=== PATIENT | male | born 1990 | race Caucasian/White ===

== ENCOUNTER 2021-03-24 18:52 | Inpatient (IN) | payer BC, OTHER ==
[~2021-03-24] VITALS: Ht 177.8 cm; Wt 136.4 kg
[2021-03-24] MEDS ORDERED: RT-ALBUTEROL HFA 8.5 GM INHALER IH ONE (19:23)
[2021-03-24] MEDS ORDERED: RT--FLUTICASONE/SALMETEROL 113-14 (AIRDUO RespiCLICK) IH ONE (19:23)
[2021-03-24] MEDS ORDERED: IBUPROFEN 800 MG (MOTRIN) TAB PO ONE (19:25)
[2021-03-24] MEDS ORDERED: ACETAMINOPHEN 500 MG TAB (TYLENOL) PO PRN ×2 (19:30→23:15)
[2021-03-24] MEDS ORDERED: RT-ALBUTEROL HFA 8.5 GM INHALER IH PRN (19:30)
[2021-03-24] MEDS ORDERED: NS IV 1000 ML 1,000 ML IV SCH ×2 (19:30→21:00)
[2021-03-24] MEDS: RT--FLUTICASONE/SALMETEROL 232-14 (AIRDUO RespiCLICK) IH SCH (19:36)
[2021-03-24 19:56] LABS: BASOPHILS % (AUTO) 0 % (0-10); EOSINOPHILS % (AUTO) 0 % (0-10)
[2021-03-24 19:58] LABS: HEMATOCRIT 46 % (40-54); HEMOGLOBIN 15.6 g/dL (13.3-17.7); LYMPHOCYTES # (AUTO) 1.4 10^3/uL (1.0-4.0); LYMPHOCYTES % (AUTO) 27 % (12-44); MEAN CORPUSCULAR HEMOGLOBIN 30 pg (25-34); MEAN CORPUSCULAR HGB CONC 34 g/dL (32-36); MEAN CORPUSCULAR VOLUME 88 fL (80-99); MEAN PLATELET VOLUME 11.1 fL (9.0-12.2); MONOCYTES # (AUTO) 0.4 10^3/uL (0.0-1.0); MONOCYTES % (AUTO) 7 % (0-12); NEUTROPHILS # (AUTO) 3.4 10^3/uL (1.8-7.8); NEUTROPHILS % (AUTO) 65 % (42-75); PLATELET COUNT 129 10^3/uL (130-400); WHITE BLOOD COUNT 5.2 10^3/uL (4.3-11.0)
[2021-03-24 20:13] LABS: ERYTHROCYTE SEDIMENTATION RATE 38 MM/HR (0-15); FIBRIN DEGRADATION PRODUCTS 0.72 UG/ML (0.00-0.49); INR 0.9 (0.8-1.4); PROTHROMBIN TIME PATIENT 12.8 SEC (12.2-14.7)
--- NOTE | 2021-03-24 20:35 | Diagnostic Imaging Report ---
INDICATION: Covid infection with dyspnea AP view of the chest is obtained. There is no previous study for comparison. There is suboptimal inspiration resulting in crowding of pulmonary markings. In addition, peripheral infiltrates are seen bilaterally without pneumothorax or definite pleural fluid. IMPRESSION: Moderate peripheral pulmonary infiltrates bilaterally compatible with Covid infection, however, no other definite acute abnormality is seen. Dictated by: Dictated on workstation # [id number]
[2021-03-24 20:37] LABS: ABG BASE EXCESS 2.9 MMOL/L (-2.5-2.5); ABG OXYGEN SATURATION 99 % (94-100); ABG PCO2 37 MMHG (35-45); ABG PH 7.46 (7.37-7.43); ABG PO2 181 MMHG (79-93); ABG TCO2 28.1 MMOL/L (21.0-31.0); ALLENS TEST POSITIVE; INSPIRED O2 80; PATIENT TEMP 35; VENTILATOR NO
--- NOTE | 2021-03-24 20:38 | ED Respiratory ---
General Chief Complaint: Respiratory Problems Stated Complaint: COVID +,DIABETIC,SOB,FATIGUE Nursing Triage Note: PT PRESENTS TO THE ED C/O SOB FOR THE LAST SEVEN DAYS. PT WAS DX WITH COVID SEVEN DAYS AGO. HAS HAD FEVERS AND COUGH SINCE THEN. TODAY SOB IS AT ITS WORST. PT IS ALSO A DIABETIC AND HAD POOR ORAL FOOD INTAKE D/T MALAISE Source: patient History of Present Illness Date Seen by Provider: Mar 24, 2021 Time Seen by Provider: 19:15 Initial Comments PT ARRIVES VIA POV FROM HOME PT STATES HE HAS BEEN SICK FOR 8 DAYS, TESTED + FOR COVID-19 7 DAYS AGO AT [facility] NO TREATMENT / NO PRESCRIPTIONS PT HAS NOT TAKEN ANYTHING FOR HIS SYMPTOMS AT ANY TIME PT HAS NOT CHECKED HIS TEMPERATURE AT ANY TIME ALL OTHER HOUSEHOLD FAMILY MEMBERS ARE ILL WITH SAME, EXCEPT ONE--OTHER FAMILY MEMBERS BEGAN GETTING SICK 3 DAYS BEFORE HE STARTED HAVING SYMPTOMS C/O SHORTNESS OF BREATH--WORSE TODAY C/O FATIGUE AND GENERALIZED WEAKNESS C/O COUGH C/O SUBJECTIVE FEVER/CHILLS C/O BODY ACHES NO NAUSEA/VOMITING/DIARRHEA OR ABDOMINAL PAIN, BUT HAS NOT BEEN EATING OR DRINKING MUCH BECAUSE OF FATIGUE/MALAISE NO CHEST PAIN NO SWELLING IN LEGS/FEET PT DENIES ANY HISTORY OF RESPIRATORY PROBLEMS PT HAS NEVER SMOKED, AND IS NON-DRINKER AND DENIES DRUG USE PT IS NON-INSULIN DEPENDENT DIABETIC, AND HAS HYPERLIPIDEMIA, AND IS OBESE PT HAS NOT BEEN VACCINATED FOR COVID-19 PCP: [facility] Allergies and Home Medications Allergies Coded Allergies: No Allergy Information Available (Unverified , 03/24/21) Physical Exam Vital Signs - First Documented 03/24/21 19:08 Temp 39.0 Pulse 98 Resp 22 B/P (MAP) 172/116 (134) Pulse Ox 94 O2 Delivery Non Rebreather Capillary Refill : Less Than 3 Seconds Height: '" Weight: lbs. oz. kg; 38.00 BMI Method: Focused Exam Sepsis Stage: Sepsis Possible Source: Pulmonary Lactate Level 03/24/21 19:40: Lactic Acid Level 1.17 Time of Focused Exam: 20:45 Respiratory: No Accessory Muscle Use, No Respiratory Distress, Wheezing (FAINT WHEEZING BILATERALLY) Cardiovascular: Regular Rate, Rhythm, No Edema, No JVD, No Murmur, Normal Peripheral Pulses Capillary Refill: Less Than 3 Seconds Skin: normal color, warm/dry (VERY WARM) Lactic Acid Level Laboratory Tests Test 03/24/21 19:40 Lactic Acid Level 1.17 MMOL/L (0.50-2.00) Within 3hrs of presentation: Admin fluids, Admin ABX, Blood cultures prior to ABX's, Focus exam, Lactate level Progress/Results/Core Measures Suspected Sepsis SIRS Temperature: Pulse: 98 Respiratory Rate: 22 Laboratory Tests 03/24/21 19:40: White Blood Count 5.2 Blood Pressure 172 /116 Mean: 134 03/24/21 19:40: Lactic Acid Level 1.17 Laboratory Tests 03/24/21 19:40: Creatinine 0.83, INR Comment 0.9, Platelet Count 129L, Total Bilirubin 0.6 Results/Orders Lab Results Laboratory Tests Test 03/24/21 19:40 03/24/21 19:53 03/24/21 20:04 03/24/21 20:26 Range/Units White Blood Count 5.2 4.3-11.0 10^3/uL Red Blood Count 5.20 4.30-5.52 10^6/uL Hemoglobin 15.6 13.3-17.7 g/dL Hematocrit 46 40-54 % Mean Corpuscular Volume 88 80-99 fL Mean Corpuscular Hemoglobin 30 25-34 pg Mean Corpuscular Hemoglobin Concent 34 32-36 g/dL Red Cell Distribution Width 13.4 10.0-14.5 % Platelet Count 129 L 130-400 10^3/uL Mean Platelet Volume 11.1 9.0-12.2 fL Immature Granulocyte % (Auto) 1 % Neutrophils (%) (Auto) 65 42-75 % Lymphocytes (%) (Auto) 27 12-44 % Monocytes (%) (Auto) 7 0-12 % Eosinophils (%) (Auto) 0 0-10 % Basophils (%) (Auto) 0 0-10 % Neutrophils # (Auto) 3.4 1.8-7.8 10^3/uL Lymphocytes # (Auto) 1.4 1.0-4.0 10^3/uL Monocytes # (Auto) 0.4 0.0-1.0 10^3/uL Eosinophils # (Auto) 0.0 0.0-0.3 10^3/uL Basophils # (Auto) 0.0 0.0-0.1 10^3/uL Immature Granulocyte # (Auto) 0.0 0.0-0.1 10^3/uL Percent Immature Platelet Fraction 5.5 0.0-7.6 % Erythrocyte Sedimentation Rate 38 H 0-15 MM/HR Prothrombin Time 12.8 12.2-14.7 SEC INR Comment 0.9 0.8-1.4 Activated Partial Thromboplast Time 34 24-35 SEC D-Dimer 0.72 H 0.00-0.49 UG/ML Sodium Level 137 135-145 MMOL/L Potassium Level 3.6 3.6-5.0 MMOL/L Chloride Level 97 L 98-107 MMOL/L Carbon Dioxide Level 25 21-32 MMOL/L Anion Gap 15 H 5-14 MMOL/L Blood Urea Nitrogen 9 7-18 MG/DL Creatinine 0.83 0.60-1.30 MG/DL Estimat Glomerular Filtration Rate 107 BUN/Creatinine Ratio 11 Glucose Level 141 H 70-105 MG/DL Lactic Acid Level 1.17 0.50-2.00 MMOL/L Calcium Level 9.4 8.5-10.1 MG/DL Corrected Calcium 9.5 8.5-10.1 MG/DL Magnesium Level 2.0 1.6-2.4 MG/DL Total Bilirubin 0.6 0.1-1.0 MG/DL Aspartate Amino Transf (AST/SGOT) 126 H 5-34 U/L Alanine Aminotransferase (ALT/SGPT) 123 H 0-55 U/L Alkaline Phosphatase 52 40-136 U/L Lactate Dehydrogenase 433 H 125-220 U/L Total Creatine Kinase 379 H 30-200 U/L Creatine Kinase MB 1.1 <6.6 NG/ML Myoglobin 155.5 H 10.0-92.0 NG/ML Troponin I < 0.028 <0.028 NG/ML C-Reactive Protein High Sensitivity 5.82 H 0.00-0.50 MG/DL B-Type Natriuretic Peptide < 10.0 <100.0 PG/ML Total Protein 7.4 6.4-8.2 GM/DL Albumin 3.9 3.2-4.5 GM/DL Procalcitonin 0.21 H <0.10 NG/ML Glucometer 144 H 70-110 MG/DL Influenza Type A (RT-PCR) Not Detected Not Detecte Influenza Type B (RT-PCR) Not Detected Not Detecte SARS-CoV-2 RNA (RT-PCR) Detected H Not Detecte Blood Gas Puncture Site LEFT RADIAL Blood Gas Patient Temperature 35 Arterial Blood pH 7.46 H 7.37-7.43 Arterial Blood Partial Pressure CO2 37 35-45 MMHG Arterial Blood Partial Pressure O2 181 H 79-93 MMHG Arterial Blood HCO3 27 23-27 MMOL/L Arterial Blood Total CO2 28.1 21.0-31.0 MMOL/L Arterial Blood Oxygen Saturation 99 94-100 % Arterial Blood Base Excess 2.9 H -2.5-2.5 MMOL/L Samy Test POSITIVE Blood Gas Ventilator Setting NO Blood Gas Inspired Oxygen 80 Test 03/24/21 20:57 Range/Units Urine Color ORANGE Urine Clarity CLOUDY Urine pH 6.0 5-9 Urine Specific [place] >=1.030 1.016-1.022 Urine Protein 2+ H NEGATIVE Urine Glucose (UA) NEGATIVE NEGATIVE Urine Ketones NEGATIVE NEGATIVE Urine Nitrite NEGATIVE NEGATIVE Urine Bilirubin NEGATIVE NEGATIVE Urine Urobilinogen 0.2 < = 1.0 MG/DL Urine Leukocyte Esterase NEGATIVE NEGATIVE Urine RBC (Auto) TRACE-I H NEGATIVE Urine RBC NONE /HPF Urine WBC 0-2 /HPF Urine Squamous Epithelial Cells NONE /HPF Urine Renal Epithelial Cells NONE /HPF Urine Crystals NONE /LPF Urine Bacteria NEGATIVE /HPF Urine Casts NONE /LPF Urine Mucus MODERATE H /LPF Urine Culture Indicated NO My Orders Orders - KALEB IBARRA DO Accucheck Stat ONCE (03/24/21 19:16) Ed Iv/Invasive Line Start (03/24/21 19:16) Ekg Tracing (03/24/21 19:16) O2 (03/24/21 19:16) Monitor-Rhythm Ecg Trace Only (03/24/21 19:16) Chest 1 View, Ap/Pa Only (03/24/21 19:16) Arterial Blood Gas (03/24/21 19:16) BNP (03/24/21 19:16) Cbc With Automated Diff (03/24/21 19:16) Comprehensive Metabolic Panel (03/24/21 19:16) Creatine Kinase (03/24/21 19:16) Creatine Kinase Mb (03/24/21 19:16) Hs C Reactive Protein (03/24/21 19:16) Fibrin Degradation Products (03/24/21 19:16) Lactic Acid Analyzer (03/24/21 19:16) Magnesium (03/24/21 19:16) Procalcitonin (Pct) (03/24/21 19:16) Protime With Inr (03/24/21 19:16) Partial Thromboplastin Time (03/24/21 19:16) Ua Culture If Indicated (03/24/21 19:16) Blood Culture (03/24/21 19:16) Influenza A And B By Pcr (03/24/21 19:16) Erythrocyte Sedimentation Rate (03/24/21 19:16) Myoglobin Serum (03/24/21 19:16) Troponin I (03/24/21 19:16) Sputum Culture (03/24/21 19:16) Urine Culture (03/24/21 19:16) Acetaminophen Tablet (Tylenol Tablet) (03/24/21 19:30) Ed Iv/Invasive Line Start (03/24/21 19:16) Ed Iv/Invasive Line Start (03/24/21 19:16) Vital Signs Adult Sepsis Patie Q15M (03/24/21 19:16) O2 (03/24/21 19:16) Remove Rings In Anticipation O (03/24/21 19:16) LDH (03/24/21 19:16) Covid 19 Inhouse Test (03/24/21 19:16) Ed Iv/Invasive Line Start (03/24/21 19:16) Ns Iv 1000 Ml (Sodium Chloride 0.9%) (03/24/21 19:30) Rt Request For Service (03/24/21 19:19) Dexamethasone Injection (Decadron Inje (03/24/21 19:30) Albuterol Inhaler (Albuterol) (03/24/21 19:30) Fluticasone/Salmeterol 232-14 (Airduo Re (03/24/21 21:00) Albuterol Inhaler (Albuterol) (03/24/21 19:23) Fluticasone/Salmeterol 113-14 (Airduo Re (03/24/21 19:23) Ibuprofen Tablet (Motrin Tablet) (03/24/21 19:25) Ct Angio Chest W (03/24/21 20:49) Ed Iv/Invasive Line Start (03/24/21 20:49) Ns Iv 1000 Ml (Sodium Chloride 0.9%) (03/24/21 21:00) Ceftriaxone (Rocephin) (03/24/21 21:00) Azithromycin Injection (Zithromax Inject (03/24/21 21:00) Iohexol Injection (Omnipaque 350 Mg/Ml 1 (03/24/21 21:00) Received Contrast (Hold Metformin- Contr (03/24/21 21:00) Ns (Ivpb) (Sodium Chloride 0.9% Ivpb Bag (03/24/21 21:00) Medications Given in ED Current Medications Medications Dose Ordered Sig/Abby Route Start Time Stop Time Status Last Admin Dose Admin Acetaminophen 1,000 mg ONCE PRN PO 03/24/21 19:30 03/24/21 19:50 DC 03/24/21 19:26 1,000 MG Azithromycin 500 mg/Sodium Chloride 250 ml @ 250 mls/hr ONCE ONCE IV 03/24/21 21:00 03/24/21 21:59 03/24/21 21:48 250 MLS/HR Ceftriaxone Sodium 1000 mg/ Sterile Water 10 ml @ 200 mls/hr ONCE ONCE IV 03/24/21 21:00 03/24/21 21:02 DC 03/24/21 21:04 200 MLS/HR Dexamethasone Sodium Phosphate 10 mg ONCE ONCE IV 03/24/21 19:30 03/24/21 19:31 DC 03/24/21 19:45 10 MG Ibuprofen 800 mg STK-MED ONCE PO 03/24/21 19:25 03/24/21 19:29 DC 03/24/21 19:26 800 MG Iohexol 100 ml ONCE ONCE IV 03/24/21 21:00 03/24/21 21:01 DC 03/24/21 21:23 88 ML Sodium Chloride 100 ml ONCE ONCE IV 03/24/21 21:00 03/24/21 21:01 DC 03/24/21 21:23 80 ML Vital Signs/I&O 03/24/21 03/24/21 19:08 19:26 Temp 39.0 39.0 Pulse 98 Resp 22 B/P (MAP) 172/116 (134) Pulse Ox 94 O2 Delivery Non Rebreather Capillary Refill : Less Than 3 Seconds Blood Pressure Mean: 134 Progress Note : Progress Note PLACED IN ISOLATION ROOM PPE WORN AT ALL TIMES SEPSIS PROTOCOL INITIATED PT'S INITIAL O2 SAT 80-82% ON ROOM AIR--PLACED ON O2 AT 15L VIA OXIMASK AND O2 SATS UP TO 95%, THEN PLACED ON VAPOTHERM, WITH O2 SATS 97-99% GAVE ALBUTEROL AND ADVAIR INHALER TREATMENTS WITH INCREASED AERATION GAVE DECADRON IV GAVE TYLENOL AND MOTRIN FOR TEMP OF 102.2 GAVE IV FLUIDS GAVE ROCEPHIN AND ZITHROMAX GAVE LOVENOX PT SYMPTOMATICALLY IMPROVED AND RESPIRATIONS ARE EVEN AND UNLABORED VITALS STABLE NO HYPOTENSION HEART RATE COMING DOWN WITH ANTIPYRETICS AND IV FLUIDS O2 SATS REMAIN IN UPPER 90'S ON VAPOTHERM. NO DETERIORATION IN PT'S CONDITION DURING ER STAY ECG Initial ECG Impression Date: Mar 24, 2021 Initial ECG Impression Time: 19:23 Initial ECG Rate: 96 Initial ECG Rhythm: Normal Sinus Initial ECG Impression: Nonspecific Changes Initial ECG Comparisson: No Previous ECG Available Diagnostic Imaging Comments CXR--PER RADIOLOGIST REPORT AT 2036 AP view of the chest is obtained. There is no previous study for comparison. There is suboptimal inspiration resulting in crowding of pulmonary markings. In addition, peripheral infiltrates are seen bilaterally without pneumothorax or definite pleural fluid. IMPRESSION: Moderate peripheral pulmonary infiltrates bilaterally compatible with Covid infection, however, no other definite acute abnormality is seen. CT CHEST ANGIOGRAM--PER RADIOLOGIST REPORT AT 2157 FINDINGS: The undivided pulmonary segment of the left and right main pulmonary arteries and the bilateral lobar and segmental arteries are adequately opacified and patent. The subsegmental levels and beyond were suboptimally opacified despite technique manipulation and injection repeat. No identifiable PE was found. There was no evidence for elevated right heart pressures or right heart strain. There is a small hiatal hernia. This patient has extensive patchy 5 lobed largely groundglass infiltrates with a few peripheral areas of consolidation. While nonspecific, the pattern would be consistent with pulmonary involvement by Covid. No pleural effusion, pneumothorax or empyema. No suspicious mass. No acute chest wall abnormality. Upper abdomen shows fatty liver with no acute upper abdominal lesion. IMPRESSION: Five lobe infiltrates compatible with provided history of Covid. No identifiable PE but despite protocol manipulation, the distal and subsegmental branch opacification was technically limited. Reviewed: Reviewed by Me Departure Impression Primary Impression: Acute respiratory failure due to severe acute respiratory syndrome coronavirus 2 (SARS-CoV-2) infection Additional Impressions: Sepsis Non-insulin dependent diabetes mellitus Obesity Pneumonia due to severe acute respiratory syndrome coronavirus 2 (SARS-CoV-2) Departure-Patient Inst. Referrals: NO,LOCAL PHYSICIAN (PCP/Family) Primary Care Physician KALEB IBARRA DO Mar 24, 2021 20:38
[2021-03-24 20:43] LABS: ALANINE AMINOTRANSFERASE 123 U/L (0-55); ALBUMIN 3.9 GM/DL (3.2-4.5); ALKALINE PHOSPHATASE 52 U/L (40-136); BILIRUBIN,TOTAL 0.6 MG/DL (0.1-1.0); BUN/CREATININE RATIO 11; CALCIUM 9.4 MG/DL (8.5-10.1); CARBON DIOXIDE 25 MMOL/L (21-32); CHLORIDE 97 MMOL/L (98-107); CREATINE KINASE 379 U/L (30-200); CREATINE KINASE MB 1.1 NG/ML (<6.6); CREATININE SERUM 0.83 MG/DL (0.60-1.30); GFR ESTIMATED 107; GLUCOSE 141 MG/DL (70-105); POTASSIUM 3.6 MMOL/L (3.6-5.0); SODIUM 137 MMOL/L (135-145); TOTAL PROTEIN 7.4 GM/DL (6.4-8.2)
[2021-03-24] MEDS ORDERED: NS 100 ML (IVPB) BAG IV ONE (21:00)
[2021-03-24] MEDS ORDERED: HOLD METFORMIN - RECEIVED CONTRAST 20 ML VIAL IV SCH (21:00)
[2021-03-24] MEDS ORDERED: cefTRIAXone 1,000 MG in WATER (STERILE) FOR INJECTION 10 ML IV ONE (21:00)
[2021-03-24] MEDS ORDERED: IOHEXOL 350 MG/ML 100 ML (OMNIPAQUE 350) VIAL IV ONE (21:00)
[2021-03-24] MEDS ORDERED: AZITHROMYCIN INJECTION 500 MG in NS (IVPB) 250 ML IV ONE (21:00)
[2021-03-24 21:03] LABS: BILIRUBIN,URINE NEGATIVE (NEGATIVE); CLARITY,URINE CLOUDY; COLOR,URINE ORANGE; GLUCOSE, URINE (UA) NEGATIVE (NEGATIVE); KETONES,URINE NEGATIVE (NEGATIVE); LEUKOCYTE ESTERASE ,URINE NEGATIVE (NEGATIVE); NITRITE,URINE NEGATIVE (NEGATIVE); PROTEIN,URINE 2+ (NEGATIVE)
[2021-03-24 21:14] LABS: BACTERIA,URINE NEGATIVE /HPF; WBC,URINE 0-2 /HPF
--- NOTE | 2021-03-24 21:53 | Diagnostic Imaging Report ---
PROCEDURE: CT angiography of the chest with contrast. TECHNIQUE: Multiple contiguous axial images were obtained through the chest after uneventful bolus administration of intravenous contrast. 3D reconstructed CTA MIP acquisitions were also performed. Auto Exposure Controls were utilized during the CT exam to meet ALARA standards for radiation dose reduction. INDICATION: Cough, shortness of air, Covid positive patient. In addition to routine technique, the scan was repeated twice owing to suboptimal pulmonary arterial opacification. FINDINGS: The undivided pulmonary segment of the left and right main pulmonary arteries and the bilateral lobar and segmental arteries are adequately opacified and patent. The subsegmental levels and beyond were suboptimally opacified despite technique manipulation and injection repeat. No identifiable PE was found. There was no evidence for elevated right heart pressures or right heart strain. There is a small hiatal hernia. This patient has extensive patchy 5 lobed largely groundglass infiltrates with a few peripheral areas of consolidation. While nonspecific, the pattern would be consistent with pulmonary involvement by Covid. No pleural effusion, pneumothorax or empyema. No suspicious mass. No acute chest wall abnormality. Upper abdomen shows fatty liver with no acute upper abdominal lesion. IMPRESSION: Five lobe infiltrates compatible with provided history of Covid. No identifiable PE but despite protocol manipulation, the distal and subsegmental branch opacification was technically limited. Dictated by: Dictated on workstation # [id number]
[2021-03-24 22:50] VITALS: BP 139/86
[2021-03-24 23:00] VITALS: BP 139/86
[2021-03-24 23:15] VITALS: BP 138/84
[2021-03-24] MEDS ORDERED: ONDANSETRON 4 MG/2 ML (SDV) Z0FRAN IV PRN (23:15)
[2021-03-24] MEDS ORDERED: IBUPROFEN 800 MG (MOTRIN) TAB PO PRN (23:15)
[2021-03-24 23:30] VITALS: BP 133/82
[2021-03-24] MEDS ORDERED: VASOPRESSIN INJECTION 20 UNIT in NS (IVPB) 100 ML IV SCH (23:30)
[2021-03-24] MEDS ORDERED: EPINEPHrine 1 MG INJECTION 4 MG in NS (IVPB) 248 ML IV SCH (23:30)
[2021-03-24] MEDS ORDERED: NOREPINEPHRINE 8 MG/250 ML 250 ML IV SCH (23:30)
[2021-03-24] MEDS: NS IV 1000 ML 1,000 ML IV SCH (23:37)
[2021-03-24 23:45] VITALS: BP 140/80
[2021-03-24 23:50] VITALS: BP 172/116
[2021-03-25] VITALS: BP 131/77
--- NOTE | 2021-03-25 00:04 | Tele-ICU Progress Note ---
Progress Note 30M with NIDDM, obesity admitted with progressive COVID symptoms. Unvaccinated. Onset of symptoms 8 days ago, positive COVID 7 days ago. On arrival to ER was 80% on RA, improved with vapotherm 35L/100%. CTA negative for PE. - Pna: COVID pna, supportive care with decadron, albuterol, advair. Empiric bacterial coverage with rocephin, azithro. - DM: sliding scale - code status: order entered for no intubation, OK for CPR. Will provide further education and present options. Will encourage full code, given his age, but if he is adamant about no intubation, will be a DNR. Focused Exam Lactate Level 03/24/21 19:40: Lactic Acid Level 1.17 Height, Weight, BMI Height: '" Weight: lbs. oz. kg; 38.00 BMI Method: Time of Focused Exam: 20:45 LEONOR VERDUGO MD Mar 25, 2021 00:04
[2021-03-25] MEDS ORDERED: RT-ALBUTEROL HFA 8.5 GM INHALER IH PRN (00:15)
[2021-03-25] MEDS: RT-ALBUTEROL HFA 8.5 GM INHALER IH SCH ×6 (02:15→21:53)
[2021-03-25] MEDS: NS IV 1000 ML 1,000 ML IV SCH (05:50)
[2021-03-25] MEDS: inSUlin ASPART (NovoLOG) 1 UNIT/0.01 ML (CHARGE PER UNIT) SC SCH ×4 (05:50→21:37)
[2021-03-25 06:22] LABS: EOSINOPHILS % (AUTO) 0 % (0-10); MONOCYTES # (AUTO) 0.2 10^3/uL (0.0-1.0)
[2021-03-25 06:24] LABS: BASOPHILS % (AUTO) 0 % (0-10); HEMATOCRIT 44 % (40-54); HEMOGLOBIN 14.4 g/dL (13.3-17.7); LYMPHOCYTES # (AUTO) 0.8 10^3/uL (1.0-4.0); LYMPHOCYTES % (AUTO) 25 % (12-44); MEAN CORPUSCULAR HEMOGLOBIN 30 pg (25-34); MEAN CORPUSCULAR HGB CONC 33 g/dL (32-36); MEAN CORPUSCULAR VOLUME 91 fL (80-99); MEAN PLATELET VOLUME 11.4 fL (9.0-12.2); MONOCYTES % (AUTO) 5 % (0-12); NEUTROPHILS # (AUTO) 2.3 10^3/uL (1.8-7.8); NEUTROPHILS % (AUTO) 69 % (42-75); PLATELET COUNT 121 10^3/uL (130-400); WHITE BLOOD COUNT 3.4 10^3/uL (4.3-11.0)
[2021-03-25 06:39] LABS: ALBUMIN 3.5 GM/DL (3.2-4.5); POTASSIUM 4.3 MMOL/L (3.6-5.0)
[2021-03-25 06:40] LABS: CALCIUM 8.7 MG/DL (8.5-10.1)
[2021-03-25 06:42] LABS: TOTAL PROTEIN 6.7 GM/DL (6.4-8.2)
[2021-03-25 06:43] LABS: BILIRUBIN,TOTAL 0.4 MG/DL (0.1-1.0)
[2021-03-25 06:45] LABS: CREATININE SERUM 0.8 MG/DL (0.60-1.30); PHOSPHORUS 3.8 MG/DL (2.3-4.7)
[2021-03-25 06:48] LABS: MAGNESIUM 2.2 MG/DL (1.6-2.4)
--- NOTE | 2021-03-25 07:29 | Diagnostic Imaging Report ---
INDICATION: COVID positive, pneumonia. TECHNIQUE: Single view chest 4:20 AM. CORRELATION STUDY: 03/24/2021 FINDINGS: Extensive bilateral pulmonary infiltrates are again demonstrated overall appear increased in severity. Remaining most pronounced at the left mid upper lung field as well as right lung base. Heart size enlarged, mediastinum prominent. IMPRESSION: 1. Extensive bilateral pulmonary infiltrates again demonstrated overall appear increased and worsening in severity. Report was faxed to [facility] by annette at 7:33am. Dictated by: Dictated on workstation # [id number]
[2021-03-25] MEDS: ENOXAPARIN 60 MG/0.6 ML (LOVENOX) SYR SC SCH ×2 (08:26→21:36)
[2021-03-25] MEDS ORDERED: ENOXAPARIN 40 MG/0.4 ML (LOVENOX) SYR SC SCH (09:00)
--- NOTE | 2021-03-25 09:49 | History & Physical-Hospitalist ---
History of Present Illness HPI/Chief Complaint CC: Covid-19 pneumonia with acute hypoxic respiratory failure HPI: This is a 30yoWM who presented seven days after positive Covid swab, who had worsening hypoxia requiring oxygen supplementation, he is now on Vapotherm and meets criteria for Actemera. 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 Pt was counseled on the need for laying on his side or prone. Source: patient Exam Limitations: clinical condition Date Seen 03/25/21 Time Seen by a Provider: 10:30 Attending Physician Fany Canseco DO PCP No,Local Physician Referring Physician Date of Admission Mar 24, 2021 at 20:40 Home Medications & Allergies Home Medications Reviewed patient Home Medication Reconciliation performed by pharmacy medication reconciliations optometric technician and/or nursing. Patients Allergies have been reviewed. Allergies Allergies Coded Allergies No Allergy Information Available ([id number]/4/21) Past Mocmgga-Itawov-Bmuyrv Hx Patient Social History Marrital Status: Employed/Student: employed Tobacco Use?: No Smoking Status: Former Smoker Substance use?: No Alcohol Use?: No Immunizations Up To Date Tetanus Booster (TDap): Unknown Current Status Advance Directives: No Primary Language: Greenlandic Preferred Spoken Language: Greenlandic Past Medical History Diabetes, Non-Insulin dep Review of Systems Constitutional: see HPI, dizziness, fever, malaise, weakness EENTM: no symptoms reported Respiratory: cough, dyspnea on exertion, short of breath Cardiovascular: no symptoms reported Gastrointestinal: no symptoms reported Genitourinary: no symptoms reported Musculoskeletal: no symptoms reported Psychiatric/Neurological: No Symptoms Reported All Other Systems Reviewed Negative Unless Noted: Yes Physical Exam Physical Exam Vital Signs Vital Signs - First Documented 03/24/21 03/24/21 19:08 22:27 Temp 39.0 Pulse 98 Resp 22 B/P (MAP) 172/116 (134) Pulse Ox 94 O2 Delivery Non Rebreather O2 Flow Rate 15.00 FiO2 80 Capillary Refill : Less Than 3 Seconds Height, Weight, BMI Height: '" Weight: lbs. oz. kg; 52.51 BMI Method: General Appearance: WD/WN, Anxious, Obese Eyes: Right Eye Normal Inspection, Right Eye PERRL HEENT: PERRL/EOMI, Normal ENT Inspection, Pharynx Normal, Moist Mucous Membranes Neck: Full Range of Motion, Normal Inspection, Non Tender Respiratory: Chest Non Tender, Normal Breath Sounds, No Accessory Muscle Use, No Respiratory Distress, Decreased Breath Sounds Cardiovascular: Regular Rate, Rhythm, No Edema, No Gallop, No JVD, No Murmur, Normal Peripheral Pulses Gastrointestinal: Normal Bowel Sounds, No Organomegaly, No Pulsatile Mass, Non Tender, Soft Back: Normal Inspection, No CVA Tenderness, No Vertebral Tenderness Extremity: Normal Capillary Refill, Normal Inspection, Normal Range of Motion, Non Tender, No Calf Tenderness, No Pedal Edema Neurologic/Psychiatric: Alert, Oriented x3, No Motor/Sensory Deficits, lead loader II- XII Norm as Tested, Depressed Affect Skin: Normal Color, Warm/Dry Lymphatic: No Adenopathy Results Results/Procedures Labs Laboratory Tests 03/24/21 19:40 03/25/21 06:10 Patient resulted labs reviewed. Assessment/Plan Admission Diagnosis Assessment: Acute hypoxic respiratory failure COVID-19 pneumonia severe requiring Actemra Diabetes with elevated sugar due to steroids Obesity BMI 52 high risk for intubation Plan: Decadron Lovenox Community-acquired pneumonia antibiotic coverage Actemra Insulin Prone position recommended Admission Status: Inpatient Order (span 2 midnights) Reason for Inpatient Admission: Respiratory failure FANY CANSECO DO Mar 25, 2021 09:49
[2021-03-25] MEDS: RT--FLUTICASONE/SALMETEROL 232-14 (AIRDUO RespiCLICK) IH SCH ×2 (10:44→21:55)
--- NOTE | 2021-03-25 11:32 | Tele-ICU Progress Note ---
Subjective Date Seen by a Provider: Mar 25, 2021 Time Seen by a Provider: 11:31 Sepsis Event Evaluation Height, Weight, BMI Height: '" Weight: lbs. oz. kg; 52.51 BMI Method: Focused Exam Lactate Level 03/24/21 19:40: Lactic Acid Level 1.17 Time of Focused Exam: 20:45 Exam Exam Patient acknowledged, consented, and participated in this virtual visit which was conducted using real time audio/video Vital Signs Date Time Temp Pulse Resp B/P (MAP) Pulse Ox O2 Delivery O2 Flow Rate FiO2 03/25/21 11:00 75 22 130/76 90 Vapotherm 30.00 70.00 03/25/21 10:44 91 Vapotherm 30.00 70 03/25/21 10:00 61 14 138/82 96 Vapotherm 30.00 70.00 03/25/21 09:00 75 23 141/81 87 Vapotherm 30.00 70.00 03/25/21 08:30 Vapotherm 30.00 70.00 03/25/21 08:00 70 Vapotherm 30.00 92 03/25/21 08:00 73 18 126/80 94 OxyMask 12.00 03/25/21 08:00 36.1 03/25/21 07:16 90 OxyMask 14.00 03/25/21 07:00 79 47 130/82 90 OxyMask 12.00 03/25/21 06:38 66 03/25/21 06:00 64 19 127/83 92 OxyMask 12.00 03/25/21 05:00 78 21 132/80 93 OxyMask 12.00 03/25/21 04:00 66 18 125/83 93 OxyMask 12.00 03/25/21 04:00 36.3 03/25/21 03:36 OxyMask 12.00 92 03/25/21 03:00 60 25 124/80 94 OxyMask 12.00 03/25/21 02:15 94 OxyMask 14.00 03/25/21 02:00 66 22 125/79 95 OxyMask 12.00 03/25/21 01:59 36.4 03/25/21 01:00 73 03/25/21 01:00 73 19 140/81 95 OxyMask 12.00 03/25/21 00:00 79 21 131/77 (95) 96 OxyMask 12.00 03/25/21 00:00 79 21 131/70 96 OxyMask 12.00 03/24/21 23:50 39.0 98 94 100 03/24/21 23:45 71 22 140/80 (100) 95 OxyMask 12.00 03/24/21 23:45 71 22 140/80 95 OxyMask 12.00 03/24/21 23:37 78 133/82 03/24/21 23:30 79 25 133/82 (99) 93 OxyMask 12.00 03/24/21 23:30 79 25 133/82 93 OxyMask 12.00 03/24/21 23:15 81 28 138/84 (102) 92 OxyMask 12.00 03/24/21 23:15 81 28 138/84 92 OxyMask 12.00 03/24/21 23:00 80 28 139/86 (103) 94 OxyMask 12.00 03/24/21 23:00 70 03/24/21 23:00 80 28 139/86 94 OxyMask 12.00 03/24/21 22:50 36.1 79 37 139/86 (103) 93 OxyMask 12.00 03/24/21 22:50 OxyMask 12.00 92 03/24/21 22:50 36.1 79 37 139/86 92 OxyMask 12.00 03/24/21 22:47 37.3 93 27 122/65 95 Vapotherm 35.00 35.00 03/24/21 22:27 96 Vapotherm 35.00 80 03/24/21 21:00 38.7 86 22 145/91 94 Vapotherm 35.00 03/24/21 19:26 39.0 03/24/21 19:08 94 Non Rebreather 15.00 03/24/21 19:08 39.0 98 22 172/116 (134) 94 Non Rebreather I & O 03/25/21 07:00 Intake Total 6110 ml Output Total 0 ml Balance 6110 ml Height & Weight Height: '" Weight: lbs. oz. kg; 52.51 BMI Method: General Appearance: No Apparent Distress Respiratory: No Accessory Muscle Use, No Respiratory Distress, Wheezing (FAINT WHEEZING BILATERALLY) Cardiovascular: Regular Rate, Rhythm, No Edema, No JVD, No Murmur, Normal Peripheral Pulses Capillary Refill: Less Than 3 Seconds Results Lab Laboratory Tests 03/24/21 19:40 03/25/21 06:10 Assessment/Plan Assessment/Plan Tele-ICU Physician , Progress Note ) Available chart/ vitals / labs / Images reviewed Video assessment done using teleICU camera, rest of exam as per RN Discussed with RN , EXAM PER RN Events overnight : FEBRILE I/O = pos drips: Pressors: , hemodynamically stable Consultants: Hospital course: 03/24 ER to ICU COVID PNA , Vapotherm 100% 35 L A/P AHRF / ARDS due to severe COVID19 ( no PE on CT 03/24 -Vapotherm 100% 35 L -prone position if able - conservative fluid strategy (aim for even or negative fluid balance - STOP IVF TODAY [id number]-4/COVID-19 PNA ( 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 Lines : periph (Central Line Necessity Reviewed) Eaton: void OG: Nutrition: PO Analgesia: Anxiety/ delirium VTE Prophylaxis: remedios 60 q12 Stress Ulcer Prophylaxis: po Plans in collaboration with bedside consultants and IM MDs. Discussed with RN to reach out if any questions or concerns A total of 33 minutes of critical care time was devoted to this patient today, required to treat and/or prevent further deterioration of critical care condition ( as above) . AMANDA SALMON MD Mar 25, 2021 11:32
[2021-03-25] MEDS ORDERED: TOCILIZUMAB INJECTION (NON-FOR 800 MG in NS (IVPB) 60 ML IV ONE (13:00)
[2021-03-25] MEDS: AZITHROMYCIN INJECTION 500 MG in NS (IVPB) 250 ML IV SCH (21:36)
[2021-03-25] MEDS: cefTRIAXone 1,000 MG in WATER (STERILE) FOR INJECTION 10 ML IV SCH (21:36)
[2021-03-26] MEDS: RT-ALBUTEROL HFA 8.5 GM INHALER IH SCH ×6 (02:13→22:19)
[2021-03-26 05:25] LABS: BASOPHILS % (AUTO) 0 % (0-10); EOSINOPHILS % (AUTO) 0 % (0-10); HEMATOCRIT 44 % (40-54); HEMOGLOBIN 14.2 g/dL (13.3-17.7); LYMPHOCYTES # (AUTO) 0.8 10^3/uL (1.0-4.0); LYMPHOCYTES % (AUTO) 14 % (12-44); MEAN CORPUSCULAR HEMOGLOBIN 29 pg (25-34); MEAN CORPUSCULAR HGB CONC 32 g/dL (32-36); MEAN CORPUSCULAR VOLUME 91 fL (80-99); MEAN PLATELET VOLUME 11.5 fL (9.0-12.2); MONOCYTES # (AUTO) 0.3 10^3/uL (0.0-1.0); MONOCYTES % (AUTO) 5 % (0-12); NEUTROPHILS % (AUTO) 81 % (42-75); PLATELET COUNT 158 10^3/uL (130-400); WHITE BLOOD COUNT 6.2 10^3/uL (4.3-11.0)
[2021-03-26 05:38] LABS: ALBUMIN 3.4 GM/DL (3.2-4.5)
[2021-03-26 05:39] LABS: POTASSIUM 4.2 MMOL/L (3.6-5.0)
[2021-03-26 05:40] LABS: CALCIUM 9.2 MG/DL (8.5-10.1)
[2021-03-26 05:41] LABS: TOTAL PROTEIN 6.4 GM/DL (6.4-8.2)
[2021-03-26] MEDS: inSUlin ASPART (NovoLOG) 1 UNIT/0.01 ML (CHARGE PER UNIT) SC SCH ×4 (05:42→21:00)
[2021-03-26 05:43] LABS: BILIRUBIN,TOTAL 0.3 MG/DL (0.1-1.0)
[2021-03-26 05:44] LABS: PHOSPHORUS 3.6 MG/DL (2.3-4.7)
[2021-03-26 05:45] LABS: CREATININE SERUM 0.71 MG/DL (0.60-1.30)
[2021-03-26 05:47] LABS: MAGNESIUM 2.1 MG/DL (1.6-2.4)
--- NOTE | 2021-03-26 08:24 | Tele-ICU Progress Note ---
Subjective Date Seen by a Provider: Mar 26, 2021 Time Seen by a Provider: 08:19 Subjective/Events-last exam On 25 lpm vapotherm, 60% FiO2 with SpO2 mid 90's and spont RR mid 20's, On Airduo, decadron, azithromycin, Rocephin, Got IV tociliumab on bid Lovenox d dimer 0.72 CXR 03/25 shows extensive bilateral infiltrates which is worrisome enlarged heart, CXR is worsening Full code, pt willing to be intubated if needed Pt says feels ok, able to sit up and eat, not much drop in SpO2 when Sepsis Event Evaluation Height, Weight, BMI Height: '" Weight: lbs. oz. kg; 52.51 BMI Method: Focused Exam Lactate Level 03/24/21 19:40: Lactic Acid Level 1.17 Time of Focused Exam: 20:45 Exam Exam Patient acknowledged, consented, and participated in this virtual visit which was conducted using real time audio/video Vital Signs Date Time Temp Pulse Resp B/P (MAP) Pulse Ox O2 Delivery O2 Flow Rate FiO2 03/26/21 07:50 36.0 03/26/21 06:50 95 Vapotherm 25.00 60 03/26/21 06:00 60 24 122/83 93 Vapotherm 25.00 60.00 03/26/21 05:00 66 30 123/88 92 Vapotherm 25.00 60.00 03/26/21 04:00 60 Vapotherm 25.00 93 03/26/21 04:00 60 126/81 98 Vapotherm 25.00 60.00 03/26/21 04:00 36.1 03/26/21 03:00 61 23 114/79 97 Vapotherm 25.00 60.00 03/26/21 02:13 96 Vapotherm 25.00 60 03/26/21 02:00 63 125/84 97 Vapotherm 25.00 60.00 03/26/21 01:00 67 03/26/21 01:00 67 25 128/81 95 Vapotherm 25.00 60.00 03/26/21 00:00 66 27 122/86 93 Vapotherm 25.00 60.00 03/25/21 23:53 60 Vapotherm 25.00 93 03/25/21 23:51 36.6 03/25/21 23:00 79 14 121/68 95 Vapotherm 25.00 60.00 03/25/21 22:00 79 29 133/85 95 Vapotherm 25.00 60.00 03/25/21 21:56 93 Vapotherm 25.00 60 03/25/21 21:00 81 26 123/65 98 Vapotherm 25.00 60.00 03/25/21 20:00 90 22 147/91 87 Vapotherm 25.00 60.00 03/25/21 19:51 60 Vapotherm 25.00 93 03/25/21 19:00 83 03/25/21 19:00 83 30 137/85 92 Vapotherm 25.00 60.00 03/25/21 18:39 94 Vapotherm 25.00 60 03/25/21 18:00 112 27 134/94 95 Vapotherm 25.00 60.00 03/25/21 17:00 74 22 134/91 88 Vapotherm 25.00 60.00 03/25/21 16:18 36.3 03/25/21 16:00 60 Vapotherm 25.00 93 03/25/21 16:00 79 17 132/91 95 Vapotherm 25.00 60.00 03/25/21 15:00 96 26 87 Vapotherm 25.00 60.00 03/25/21 14:36 92 Vapotherm 25.00 60 03/25/21 14:00 79 27 144/92 92 Vapotherm 25.00 60.00 03/25/21 13:30 Vapotherm 25.00 60.00 03/25/21 13:00 84 43 145/87 94 Vapotherm 30.00 70.00 03/25/21 13:00 79 03/25/21 12:00 36.1 03/25/21 12:00 89 49 146/98 91 Vapotherm 30.00 70.00 03/25/21 12:00 60 Vapotherm 25.00 93 03/25/21 11:00 75 22 130/76 90 Vapotherm 30.00 70.00 03/25/21 10:44 91 Vapotherm 30.00 70 03/25/21 10:00 61 14 138/82 96 Vapotherm 30.00 70.00 03/25/21 09:00 75 23 141/81 87 Vapotherm 30.00 70.00 03/25/21 08:30 Vapotherm 30.00 70.00 I & O 03/26/21 07:00 Intake Total 25549 ml Balance 41401 ml Height & Weight Height: '" Weight: lbs. oz. kg; 52.51 BMI Method: General Appearance: WD/WN, Anxious, Mild Distress, Obese HEENT: PERRL/EOMI, Normal ENT Inspection, Pharynx Normal, Moist Mucous Membranes Neck: Full Range of Motion, Normal Inspection, Non Tender Respiratory: Chest Non Tender, Normal Breath Sounds, No Accessory Muscle Use, No Respiratory Distress, Decreased Breath Sounds Cardiovascular: Regular Rate, Rhythm, No Edema, No Gallop, No JVD, No Murmur, Normal Peripheral Pulses Capillary Refill: Less Than 3 Seconds Gastrointestinal: normal bowel sounds, non tender Extremity: Normal Capillary Refill, Normal Inspection, Normal Range of Motion, Non Tender, No Calf Tenderness, No Pedal Edema Neurologic/Psychiatric: Alert, Oriented x3, No Motor/Sensory Deficits, 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 Unvaccinated. Onset of symptoms 8 days ago, positive COVID 7 days ago. On arrival to ER was 80% on RA, improved with vapotherm 35L/100%. CTA negative for PE. Now on 60% 25 lpm - Pna: COVID pna, supportive care with decadron, albuterol, advair. Empiric bacterial coverage with rocephin, azithro. - DM: sliding scale - code status: order entered for no intubation, OK for CPR. Will provide further education and present options. Will encourage full code, given his age, but if he is adamant about no intubation, will be a DNR. Will continue present Rx and monitor oxygenation needs closely Critical Care: Critically Ill Patient Time spent with patient (mins): 30 ISIS MONTILLA MD Mar 26, 2021 08:24
[2021-03-26] MEDS: ENOXAPARIN 60 MG/0.6 ML (LOVENOX) SYR SC SCH ×2 (08:48→20:58)
--- NOTE | 2021-03-26 10:17 | Progress Note - Hospitalist ---
Subjective HPI/CC On Admission Date Seen by Provider: Mar 26, 2021 Time Seen by Provider: 11:00 CC: Covid-19 pneumonia with acute hypoxic respiratory failure HPI: This is a 30yoWM who presented seven days after positive Covid swab, who had worsening hypoxia requiring oxygen supplementation, he is now on Vapotherm and meets criteria for Actemera. 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 Pt was counseled on the need for laying on his side or prone. Subjective/Events-last exam Pt doing better No significant concerns Actemra given yesterday Hopefully that will help him by Wednesday Checked meds and labs Diarrhea is noted Trying to be on his side in a prone position Review of Systems Pulmonary: Dyspnea Focused Exam Lactate Level 03/24/21 19:40: Lactic Acid Level 1.17 Time of Focused Exam: 20:45 Objective Exam Vital Signs Vital Signs Date Time Temp Pulse Resp B/P (MAP) Pulse Ox O2 Delivery O2 Flow Rate FiO2 03/27/21 04:39 Vapotherm 40.00 100.00 03/27/21 04:30 36.7 65 03/27/21 04:30 88 100 03/27/21 03:00 30 131/88 Capillary Refill : Less Than 3 Seconds General Appearance: No Apparent Distress, WD/WN, Chronically ill Respiratory: No Accessory Muscle Use, Decreased Breath Sounds Cardiovascular: Regular Rate, Rhythm Neurologic/Psychiatric: Alert, Oriented x3 Results/Procedures Lab Patient resulted labs reviewed. Assessment/Plan Assessment and Plan Assess & Plan/Chief Complaint Assessment: Acute hypoxic respiratory failure COVID-19 pneumonia severe requiring Actemra Diabetes with elevated sugar due to steroids Obesity BMI 52 high risk for intubation Plan: Decadron Lovenox Community-acquired pneumonia antibiotic coverage Actemra Insulin Prone position recommended 03/26/2021: Continue supportive care Vapotherm Actemra on board Critical Care Critically Ill Patient ANGELA RUIZ DO Mar 26, 2021 10:17
[2021-03-26] MEDS: RT--FLUTICASONE/SALMETEROL 232-14 (AIRDUO RespiCLICK) IH SCH ×2 (10:28→19:00)
[2021-03-26] MEDS: cefTRIAXone 1,000 MG in WATER (STERILE) FOR INJECTION 10 ML IV SCH (20:57)
[2021-03-26] MEDS: AZITHROMYCIN INJECTION 500 MG in NS (IVPB) 250 ML IV SCH (20:58)
[2021-03-27] MEDS: RT-ALBUTEROL HFA 8.5 GM INHALER IH SCH ×6 (02:32→22:12)
--- NOTE | 2021-03-27 04:56 | Tele-ICU Progress Note ---
Subjective Date Seen by a Provider: Mar 27, 2021 Time Seen by a Provider: 04:55 Sepsis Event Evaluation Height, Weight, BMI Height: '" Weight: lbs. oz. kg; 52.51 BMI Method: Focused Exam Lactate Level 03/24/21 19:40: Lactic Acid Level 1.17 Time of Focused Exam: 20:45 Exam Exam Patient acknowledged, consented, and participated in this virtual visit which was conducted using real time audio/video Vital Signs Date Time Temp Pulse Resp B/P (MAP) Pulse Ox O2 Delivery O2 Flow Rate FiO2 03/27/21 04:39 Vapotherm 40.00 100.00 03/27/21 04:30 36.7 65 Vapotherm 30.00 75.00 03/27/21 04:30 88 Vapotherm 35.00 100 03/27/21 03:00 59 30 131/88 95 Vapotherm 30.00 80.00 03/27/21 02:32 100 Vapotherm 30.00 75 03/27/21 02:00 57 31 130/89 95 Vapotherm 30.00 80.00 03/27/21 01:00 89 33 134/92 90 Vapotherm 30.00 80.00 03/27/21 01:00 89 03/27/21 00:37 Vapotherm 30.00 80.00 03/27/21 00:00 61 139/95 96 Vapotherm 30.00 80.00 03/26/21 23:11 80 Vapotherm 30.00 92 03/26/21 23:11 36.7 92 30.00 80.00 03/26/21 23:00 71 9 147/103 92 Vapotherm 25.00 70.00 03/26/21 22:19 93 Vapotherm 30.00 80 03/26/21 22:00 75 31 155/98 93 Vapotherm 25.00 70.00 03/26/21 21:00 79 25 129/68 87 Vapotherm 25.00 70.00 03/26/21 20:00 79 28 118/62 89 Vapotherm 25.00 70.00 03/26/21 20:00 36.6 03/26/21 19:35 70 Vapotherm 25.00 94 03/26/21 19:00 90 Vapotherm 25.00 70 03/26/21 19:00 82 03/26/21 19:00 82 29 161/99 90 Vapotherm 25.00 70.00 03/26/21 18:39 Vapotherm 25.00 70.00 03/26/21 18:00 86 23 139/91 85 Vapotherm 25.00 80.00 03/26/21 17:40 Vapotherm 25.00 80.00 03/26/21 17:00 71 139/78 92 Vapotherm 25.00 60.00 03/26/21 16:29 80 Vapotherm 25.00 92 03/26/21 16:04 36.7 03/26/21 16:00 73 23 154/96 93 Vapotherm 25.00 60.00 03/26/21 15:00 83 164/98 90 Vapotherm 25.00 60.00 03/26/21 14:23 90 Vapotherm 25.00 60 03/26/21 14:00 82 36 121/69 89 Vapotherm 25.00 60.00 03/26/21 13:00 78 03/26/21 13:00 76 36 116/80 91 Vapotherm 25.00 60.00 03/26/21 12:00 36.3 03/26/21 12:00 73 31 131/98 92 Vapotherm 25.00 60.00 03/26/21 12:00 60 Vapotherm 25.00 92 03/26/21 11:00 80 8 83 Vapotherm 25.00 60.00 03/26/21 10:28 92 Vapotherm 25.00 60 03/26/21 10:00 66 24 133/117 95 Vapotherm 25.00 60.00 03/26/21 09:00 81 42 130/90 82 Vapotherm 25.00 60.00 03/26/21 08:00 60 Vapotherm 25.00 94 03/26/21 08:00 72 23 120/73 88 Vapotherm 25.00 60.00 03/26/21 07:50 36.0 03/26/21 07:00 69 03/26/21 07:00 67 42 120/78 96 Vapotherm 25.00 60.00 03/26/21 06:50 95 Vapotherm 25.00 60 03/26/21 06:00 60 24 122/83 93 Vapotherm 25.00 60.00 03/26/21 05:00 66 30 123/88 92 Vapotherm 25.00 60.00 I & O 03/27/21 07:00 Intake Total 2015 ml Output Total 1675 ml Balance 340 ml Height & Weight Height: '" Weight: lbs. oz. kg; 52.51 BMI Method: General Appearance: WD/WN, Anxious, Mild Distress, Obese HEENT: PERRL/EOMI, Normal ENT Inspection, Pharynx Normal, Moist Mucous Membranes Neck: Full Range of Motion, Normal Inspection, Non Tender Respiratory: Chest Non Tender, Normal Breath Sounds, No Accessory Muscle Use, No Respiratory Distress, Decreased Breath Sounds Cardiovascular: Regular Rate, Rhythm, No Edema, No Gallop, No JVD, No Murmur, Normal Peripheral Pulses Capillary Refill: Less Than 3 Seconds Gastrointestinal: normal bowel sounds, non tender Extremity: Normal Capillary Refill, Normal Inspection, Normal Range of Motion, Non Tender, No Calf Tenderness, No Pedal Edema Neurologic/Psychiatric: Alert, Oriented x3, No Motor/Sensory Deficits, 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
[2021-03-27 05:26] LABS: BASOPHILS % (AUTO) 0 % (0-10); EOSINOPHILS % (AUTO) 0 % (0-10); HEMATOCRIT 44 % (40-54); HEMOGLOBIN 14.6 g/dL (13.3-17.7); LYMPHOCYTES # (AUTO) 0.9 10^3/uL (1.0-4.0); LYMPHOCYTES % (AUTO) 11 % (12-44); MEAN CORPUSCULAR HEMOGLOBIN 30 pg (25-34); MEAN CORPUSCULAR HGB CONC 33 g/dL (32-36); MEAN CORPUSCULAR VOLUME 90 fL (80-99); MEAN PLATELET VOLUME 11.4 fL (9.0-12.2); MONOCYTES # (AUTO) 0.3 10^3/uL (0.0-1.0); MONOCYTES % (AUTO) 3 % (0-12); NEUTROPHILS % (AUTO) 85 % (42-75); PLATELET COUNT 196 10^3/uL (130-400); WHITE BLOOD COUNT 8.3 10^3/uL (4.3-11.0)
[2021-03-27 05:43] LABS: ALBUMIN 3.3 GM/DL (3.2-4.5); POTASSIUM 4.1 MMOL/L (3.6-5.0)
[2021-03-27 05:44] LABS: CALCIUM 8.8 MG/DL (8.5-10.1)
[2021-03-27 05:45] LABS: TOTAL PROTEIN 6.2 GM/DL (6.4-8.2)
[2021-03-27 05:47] LABS: BILIRUBIN,TOTAL 0.4 MG/DL (0.1-1.0)
[2021-03-27 05:49] LABS: CREATININE SERUM 0.71 MG/DL (0.60-1.30); PHOSPHORUS 4.3 MG/DL (2.3-4.7)
[2021-03-27] MEDS: inSUlin ASPART (NovoLOG) 1 UNIT/0.01 ML (CHARGE PER UNIT) SC SCH ×4 (05:50→21:15)
--- NOTE | 2021-03-27 06:08 | Diagnostic Imaging Report ---
INDICATION: Respiratory failure COMPARISON: 03/25/2021 FINDINGS: Single view of the chest demonstrates worsening bilateral patchy infiltrates. The heart is normal. There is no pneumothorax or large effusion. IMPRESSION: Worsening bilateral pulmonary infiltrates. Dictated by: Dictated on workstation # [id number]
[2021-03-27 06:26] LABS: ABG BASE EXCESS 3.3 MMOL/L (-2.5-2.5); ABG OXYGEN SATURATION 93 % (94-100); ABG PCO2 46 MMHG (35-45); ABG PO2 66 MMHG (79-93); ABG TCO2 29.3 MMOL/L (21.0-31.0); ALLENS TEST YES-POS
[2021-03-27 06:27] LABS: INSPIRED O2 100% VAPOTHERM; PATIENT TEMP 36.7; VENTILATOR NO
[2021-03-27] MEDS: ENOXAPARIN 60 MG/0.6 ML (LOVENOX) SYR SC SCH ×2 (08:54→21:16)
[2021-03-27] MEDS ORDERED: FUROSEMIDE 40 MG/4 ML INJ (LASIX) IVP ONE (10:30)
[2021-03-27] MEDS: RT--FLUTICASONE/SALMETEROL 232-14 (AIRDUO RespiCLICK) IH SCH ×2 (10:33→18:46)
[2021-03-27 10:34] VITALS: BP 143/94
--- NOTE | 2021-03-27 10:50 | Tele-ICU Progress Note ---
Subjective Date Seen by a Provider: Mar 27, 2021 Time Seen by a Provider: 10:49 Sepsis Event Evaluation Height, Weight, BMI Height: '" Weight: lbs. oz. kg; 52.51 BMI Method: Focused Exam Lactate Level 03/24/21 19:40: Lactic Acid Level 1.17 Time of Focused Exam: 20:45 Exam Exam Patient acknowledged, consented, and participated in this virtual visit which was conducted using real time audio/video Vital Signs Date Time Temp Pulse Resp B/P (MAP) Pulse Ox O2 Delivery O2 Flow Rate FiO2 03/27/21 07:51 36.6 03/27/21 07:00 56 03/27/21 06:20 96 Vapotherm 40.00 100 03/27/21 06:00 66 24 120/85 88 Vapotherm 40.00 100.00 03/27/21 05:48 Vapotherm 40.00 100.00 03/27/21 05:13 Vapotherm 35.00 100.00 03/27/21 05:00 56 17 140/83 92 Vapotherm 40.00 100.00 03/27/21 04:39 Vapotherm 40.00 100.00 03/27/21 04:30 36.7 65 Vapotherm 30.00 75.00 03/27/21 04:30 88 Vapotherm 35.00 100 03/27/21 04:00 58 9 122/87 99 Vapotherm 30.00 80.00 03/27/21 03:00 59 30 131/88 95 Vapotherm 30.00 80.00 03/27/21 02:32 100 Vapotherm 30.00 75 03/27/21 02:00 57 31 130/89 95 Vapotherm 30.00 80.00 03/27/21 01:00 89 33 134/92 90 Vapotherm 30.00 80.00 03/27/21 01:00 89 03/27/21 00:37 Vapotherm 30.00 80.00 03/27/21 00:00 61 139/95 96 Vapotherm 30.00 80.00 03/26/21 23:11 80 Vapotherm 30.00 92 03/26/21 23:11 36.7 92 30.00 80.00 03/26/21 23:00 71 9 147/103 92 Vapotherm 25.00 70.00 03/26/21 22:19 93 Vapotherm 30.00 80 03/26/21 22:00 75 31 155/98 93 Vapotherm 25.00 70.00 03/26/21 21:00 79 25 129/68 87 Vapotherm 25.00 70.00 03/26/21 20:00 79 28 118/62 89 Vapotherm 25.00 70.00 03/26/21 20:00 36.6 03/26/21 19:35 70 Vapotherm 25.00 94 03/26/21 19:00 90 Vapotherm 25.00 70 03/26/21 19:00 82 03/26/21 19:00 82 29 161/99 90 Vapotherm 25.00 70.00 03/26/21 18:39 Vapotherm 25.00 70.00 03/26/21 18:00 86 23 139/91 85 Vapotherm 25.00 80.00 03/26/21 17:40 Vapotherm 25.00 80.00 03/26/21 17:00 71 139/78 92 Vapotherm 25.00 60.00 03/26/21 16:29 80 Vapotherm 25.00 92 03/26/21 16:04 36.7 03/26/21 16:00 73 23 154/96 93 Vapotherm 25.00 60.00 03/26/21 15:00 83 164/98 90 Vapotherm 25.00 60.00 03/26/21 14:23 90 Vapotherm 25.00 60 03/26/21 14:00 82 36 121/69 89 Vapotherm 25.00 60.00 03/26/21 13:00 78 03/26/21 13:00 76 36 116/80 91 Vapotherm 25.00 60.00 03/26/21 12:00 36.3 03/26/21 12:00 73 31 131/98 92 Vapotherm 25.00 60.00 03/26/21 12:00 60 Vapotherm 25.00 92 03/26/21 11:00 80 8 83 Vapotherm 25.00 60.00 I & O 03/27/21 07:00 Intake Total 2165 ml Output Total 1950 ml Balance 215 ml Height & Weight Height: '" Weight: lbs. oz. kg; 52.51 BMI Method: General Appearance: No Apparent Distress, WD/WN, Chronically ill HEENT: PERRL/EOMI, Normal ENT Inspection, Pharynx Normal, Moist Mucous Membranes Neck: Full Range of Motion, Normal Inspection, Non Tender Respiratory: No Accessory Muscle Use, Decreased Breath Sounds Cardiovascular: Regular Rate, Rhythm Capillary Refill: Less Than 3 Seconds Gastrointestinal: normal bowel sounds, non tender Extremity: Normal Capillary Refill, Normal Inspection, Normal Range of Motion, Non Tender, No Calf Tenderness, No Pedal Edema Neurologic/Psychiatric: Alert, Oriented x3 Skin: Normal Color, Warm/Dry Lymphatic: No Adenopathy Results Lab Laboratory Tests 03/26/21 04:47 03/27/21 05:05 Assessment/Plan Assessment/Plan Tele-ICU Physician , Progress Note ) Available chart/ vitals / labs / Images reviewed Video assessment done using teleICU camera, rest of exam as per RN Discussed with RN , EXAM PER RN Events overnight : FEBRILE I/O = pos drips: Pressors: , hemodynamically stable Consultants: Hospital course: 03/24 ER to ICU COVID PNA , Vapotherm 100% 35 L 03/27 - vapotherm 40 100% - bipap PRN A/P AHRF / ARDS due to severe COVID19 ( no PE on CT 03/24 -Vapotherm 100% 40 L -prone position if able - conservative fluid strategy (aim for even or negative fluid balance - WILL TRY GENTLE DIURESIS TODAY with worsenig FIO2 needs - will order DDIMER 03/28 [id number]-Qfdfwprfrea-0/COVID-19 PNA ( 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 Lines : periph - candidate for PICC - (Central Line Necessity Reviewed) Eaton: void OG: Nutrition: PO Analgesia: Anxiety/ delirium VTE Prophylaxis: remedios 60 q12 Stress Ulcer Prophylaxis: po Plans in collaboration with bedside consultants and IM MDs. Discussed with RN to reach out if any questions or concerns A total of 33 minutes of critical care time was devoted to this patient today, required to treat and/or prevent further deterioration of critical care condition ( as above) . AMANDA SALMON MD Mar 27, 2021 10:50
--- NOTE | 2021-03-27 10:51 | Progress Note - Hospitalist ---
Subjective HPI/CC On Admission Date Seen by Provider: Mar 27, 2021 Time Seen by Provider: 11:40 CC: Covid-19 pneumonia with acute hypoxic respiratory failure HPI: This is a 30yoWM who presented seven days after positive Covid swab, who had worsening hypoxia requiring oxygen supplementation, he is now on Vapotherm and meets criteria for Actemera. 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 Pt was counseled on the need for laying on his side or prone. Subjective/Events-last exam Patient progressed from Vapotherm to BiPAP Patient appears to be more comfortable High risk for intubation BMI 53 does not allow him to be considered an ECMO candidate Review of Systems General: Fatigue Pulmonary: Dyspnea Focused Exam Lactate Level Time of Focused Exam: 20:45 Objective Exam Vital Signs Vital Signs Date Time Temp Pulse Resp B/P (MAP) Pulse Ox O2 Delivery O2 Flow Rate FiO2 03/27/21 19:45 92 NIV Bilevel 40 03/27/21 19:00 36.2 67 31 125/83 40.00 Capillary Refill : Less Than 3 Seconds General Appearance: No Apparent Distress, WD/WN, Anxious, Chronically ill, Obese Respiratory: No Accessory Muscle Use, No Respiratory Distress, Decreased Breath Sounds Cardiovascular: Regular Rate, Rhythm Neurologic/Psychiatric: Alert, Oriented x3, No Motor/Sensory Deficits, Normal Mood/Affect Results/Procedures Lab Laboratory Tests 03/27/21 05:05 Patient resulted labs reviewed. Assessment/Plan Assessment and Plan Assess & Plan/Chief Complaint Assessment: Acute hypoxic respiratory failure COVID-19 pneumonia severe requiring Actemra Diabetes with elevated sugar due to steroids Obesity BMI 52 high risk for intubation Plan: Decadron Lovenox Community-acquired pneumonia antibiotic coverage Actemra Insulin Prone position recommended 03/26/2021: Continue supportive care Vapotherm Actemra on board 03/27/2021: BiPAP High risk for intubation Critical Care Critically Ill Patient ANGELA RUIZ DO Mar 27, 2021 10:51
--- NOTE | 2021-03-27 11:48 | Physician Query Clarification ---
Physician Query-General Query to Physician: The medical record reflects the following clinical scenario: The patient, in the setting of History/Risk factors, Covid 19 PNA, NIDDM Clinical Findings Admission Labs/VS: HR 98, RR 22, BP 172/116, SpO2 85% sat on room air T 39.0, WBC 5.2, lactic acid 1.17 Treatment Normal saline 1 L, dexamethasone IV, Ceftriaxone IV, Azithromycin IV, Tocilizumab IV Question: Do you agree with the impression of Sepsis per ER physician Dr. Gretchen Katz? 1. Yes; will document Sepsis, Present on admission in the Progress Notes 2. No; will continue current documentation in the Progress Notes 3. Other; will document explanation of clinical findings 4. Clinically undetermined; no explanation for clinical findings Please clarify and document your clinical opinion in the Progress Notes and Discharge Summary including the definitive and/or presumptive diagnosis, (suspected or probable), related to the above clinical findings. Please include clinical findings supporting your diagnosis. In responding to this query, please exercise your independent professional judgment. The purpose of this communication is to more accurately reflect the complexity of your patients condition. The fact that a question is asked does not imply that any particular answer is desired or expected. Please remember a lack of response to the above will prompt a phone page by CDI/coding staff Thank you for timely response to this clarification. Mckay Granados MSN, RN Clinical Machine Ii Trimmer [phone] [email or web address] PHYSICIAN RESPONSE: Based on the clinical findings in the record, please respond to the query above on this document as an addendum. Physician Response: Physician Response no If you have questions please contact: Asphalt Worker: Ext: Thank you for your time and cooperation. Clinical Machine Ii Trimmer/Asphalt Worker This is a permanent part of the medical record MCKAY GRANADOS Mar 27, 2021 11:48 ANGELA RUIZ DO Mar 27, 2021 20:29
[2021-03-27] MEDS ORDERED: FUROSEMIDE 40 MG/4 ML INJ (LASIX) ONE (12:41)
[2021-03-27 14:03] VITALS: BP 152/104
[2021-03-27 18:46] VITALS: BP 142/77
[2021-03-27] MEDS: AZITHROMYCIN INJECTION 500 MG in NS (IVPB) 250 ML IV SCH (21:16)
[2021-03-27] MEDS: cefTRIAXone 1,000 MG in WATER (STERILE) FOR INJECTION 10 ML IV SCH (21:16)
[2021-03-27 22:12] VITALS: BP 128/72
[2021-03-28] MEDS: RT-ALBUTEROL HFA 8.5 GM INHALER IH SCH ×6 (02:34→21:53)
[2021-03-28 02:35] VITALS: BP 122/67
[2021-03-28 04:45] LABS: BASOPHILS % (AUTO) 0 % (0-10); EOSINOPHILS % (AUTO) 0 % (0-10); HEMATOCRIT 43 % (40-54); HEMOGLOBIN 14.2 g/dL (13.3-17.7); LYMPHOCYTES # (AUTO) 1.1 10^3/uL (1.0-4.0); LYMPHOCYTES % (AUTO) 17 % (12-44); MEAN CORPUSCULAR HEMOGLOBIN 30 pg (25-34); MEAN CORPUSCULAR HGB CONC 33 g/dL (32-36); MEAN CORPUSCULAR VOLUME 90 fL (80-99); MEAN PLATELET VOLUME 10.8 fL (9.0-12.2); MONOCYTES # (AUTO) 0.4 10^3/uL (0.0-1.0); MONOCYTES % (AUTO) 6 % (0-12); NEUTROPHILS # (AUTO) 4.9 10^3/uL (1.8-7.8); NEUTROPHILS % (AUTO) 75 % (42-75); PLATELET COUNT 201 10^3/uL (130-400); WHITE BLOOD COUNT 6.6 10^3/uL (4.3-11.0)
[2021-03-28 05:04] LABS: ALBUMIN 3.3 GM/DL (3.2-4.5)
[2021-03-28 05:05] LABS: POTASSIUM 3.9 MMOL/L (3.6-5.0)
[2021-03-28 05:06] LABS: CALCIUM 8.7 MG/DL (8.5-10.1)
[2021-03-28 05:07] LABS: TOTAL PROTEIN 6.1 GM/DL (6.4-8.2)
[2021-03-28 05:09] LABS: BILIRUBIN,TOTAL 0.5 MG/DL (0.1-1.0)
[2021-03-28 05:10] LABS: PHOSPHORUS 3.7 MG/DL (2.3-4.7)
[2021-03-28 05:11] LABS: CREATININE SERUM 0.67 MG/DL (0.60-1.30)
[2021-03-28 05:14] LABS: MAGNESIUM 2.2 MG/DL (1.6-2.4)
[2021-03-28] MEDS: inSUlin ASPART (NovoLOG) 1 UNIT/0.01 ML (CHARGE PER UNIT) SC SCH ×5 (05:19→21:13)
[2021-03-28] MEDS: ENOXAPARIN 60 MG/0.6 ML (LOVENOX) SYR SC SCH ×2 (08:35→21:11)
--- NOTE | 2021-03-28 09:47 | Tele-ICU Progress Note ---
Subjective Date Seen by a Provider: Mar 28, 2021 Time Seen by a Provider: 09:47 Sepsis Event Evaluation Height, Weight, BMI Height: '" Weight: lbs. oz. kg; 52.51 BMI Method: Focused Exam Time of Focused Exam: 20:45 Exam Exam Patient acknowledged, consented, and participated in this virtual visit which was conducted using real time audio/video Vital Signs Date Time Temp Pulse Resp B/P (MAP) Pulse Ox O2 Delivery O2 Flow Rate FiO2 03/28/21 09:00 67 32 160/101 94 Vapotherm 400.00 100.00 03/28/21 08:06 36.3 03/28/21 08:00 55 27 141/93 95 Vapotherm 400.00 100.00 03/28/21 07:17 92 Vapotherm 40.00 100 03/28/21 07:00 51 03/28/21 07:00 54 10 122/72 90 NIV Bilevel 40.00 03/28/21 06:00 52 27 116/71 94 NIV Bilevel 40.00 03/28/21 05:00 50 32 126/68 92 NIV Bilevel 40.00 03/28/21 04:25 36.8 NIV Bilevel 40.00 03/28/21 04:25 94 NIV Bilevel 40 03/28/21 04:00 51 118/64 96 NIV Bilevel 50.00 03/28/21 03:00 53 29 123/63 95 NIV Bilevel 50.00 03/28/21 02:35 52 28 95 50.00 03/28/21 02:13 99 NIV Bilevel 50.00 03/28/21 02:00 64 33 122/67 98 NIV Bilevel 80.00 03/28/21 01:00 50 23 122/71 99 NIV Bilevel 80.00 03/28/21 01:00 50 03/28/21 00:05 56 88 NIV Bilevel 80.00 03/28/21 00:03 80.00 03/28/21 00:00 65 14 122/96 84 Vapotherm 30.00 90.00 03/27/21 23:58 87 Vapotherm 40.00 100 03/27/21 23:17 Vapotherm 30.00 90.00 03/27/21 23:14 Vapotherm 35.00 100.00 03/27/21 23:10 95 NIV Bilevel 40 03/27/21 23:05 36.2 NIV Bilevel 40.00 03/27/21 23:00 57 29 125/72 95 NIV Bilevel 40.00 03/27/21 22:12 68 32 94 40.00 03/27/21 22:00 67 22 128/72 93 NIV Bilevel 40.00 03/27/21 21:00 57 12 125/70 93 NIV Bilevel 40.00 03/27/21 20:00 68 14 117/65 92 NIV Bilevel 40.00 03/27/21 19:45 92 NIV Bilevel 40 03/27/21 19:00 72 03/27/21 19:00 36.2 67 31 125/83 92 NIV Bilevel 40.00 03/27/21 18:46 73 37 95 50.00 03/27/21 18:00 69 39 142/77 92 Vapotherm 40.00 100.00 03/27/21 17:00 58 34 155/95 93 Vapotherm 40.00 100.00 03/27/21 16:03 95 NIV Bilevel 50 03/27/21 16:00 57 33 141/94 99 Vapotherm 40.00 100.00 03/27/21 15:00 58 33 138/90 99 Vapotherm 40.00 100.00 03/27/21 14:03 59 36 94 50.00 03/27/21 14:00 60 29 152/104 99 Vapotherm 40.00 100.00 03/27/21 13:15 75 03/27/21 13:00 75 26 156/109 99 Vapotherm 40.00 100.00 03/27/21 12:13 36.7 03/27/21 12:00 95 NIV Bilevel 50 03/27/21 12:00 71 26 139/87 95 Vapotherm 40.00 100.00 03/27/21 11:00 65 32 126/77 93 Vapotherm 40.00 100.00 03/27/21 10:34 68 35 93 50.00 03/27/21 10:00 75 28 143/94 93 Vapotherm 40.00 100.00 I & O 03/28/21 07:00 Intake Total 2150 ml Output Total 4000 ml Balance -1850 ml Height & Weight Height: '" Weight: lbs. oz. kg; 52.51 BMI Method: General Appearance: No Apparent Distress, WD/WN, Anxious, Chronically ill, Obese HEENT: PERRL/EOMI, Normal ENT Inspection, Pharynx Normal, Moist Mucous Membranes Neck: Full Range of Motion, Normal Inspection, Non Tender Respiratory: No Accessory Muscle Use, No Respiratory Distress, Decreased Breath Sounds Cardiovascular: Regular Rate, Rhythm Capillary Refill: Less Than 3 Seconds Gastrointestinal: normal bowel sounds, non tender Extremity: Normal Capillary Refill, Normal Inspection, Normal Range of Motion, Non Tender, No Calf Tenderness, No Pedal Edema Neurologic/Psychiatric: Alert, Oriented x3, No Motor/Sensory Deficits, Normal Mood/Affect Skin: Normal Color, Warm/Dry Lymphatic: No Adenopathy Results Lab Laboratory Tests 03/27/21 05:05 03/28/21 04:25 Assessment/Plan Assessment/Plan Tele-ICU Physician , Progress Note ) Available chart/ vitals / labs / Images reviewed Video assessment done using teleICU camera, rest of exam as per RN Discussed with RN , EXAM PER RN Events overnight : FEBRILE I/O = pos drips: Pressors: , hemodynamically stable Consultants: Hospital course: 03/24 ER to ICU COVID PNA , Vapotherm 100% 35 L 03/27 - vapotherm 40 100% - bipap PRN A/P AHRF / ARDS due to severe COVID19 ( no PE on CT 03/24 -Vapotherm 100% 40 L -prone position if able - conservative fluid strategy ( negative fluid balance with lasix x1 - still on VT 40/100% - cxr worsening HGUO-Waztaozwxzl-2/COVID-19 PNA ( 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 Lines : periph - candidate for PICC - (Central Line Necessity Reviewed) Eaton: void OG: Nutrition: PO Analgesia: Anxiety/ delirium VTE Prophylaxis: remedios 60 q12 Stress Ulcer Prophylaxis: po Plans in collaboration with bedside consultants and IM MDs. Discussed with RN to reach out if any questions or concerns A total of 33 minutes of critical care time was devoted to this patient today, required to treat and/or prevent further deterioration of critical care condition ( as above) . AMANDA SALMON MD Mar 28, 2021 09:47
[2021-03-28] MEDS: RT--FLUTICASONE/SALMETEROL 232-14 (AIRDUO RespiCLICK) IH SCH ×2 (11:05→18:43)
--- NOTE | 2021-03-28 16:55 | Progress Note - Hospitalist ---
Subjective HPI/CC On Admission Date Seen by Provider: Mar 28, 2021 Time Seen by Provider: 12:45 CC: Covid-19 pneumonia with acute hypoxic respiratory failure HPI: This is a 30yoWM who presented seven days after positive Covid swab, who had worsening hypoxia requiring oxygen supplementation, he is now on Vapotherm and meets criteria for Actemera. 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 Pt was counseled on the need for laying on his side or prone. Subjective/Events-last exam He is feeling better. He has a good appetite. His cough isn't too bad. He has no complaints. Focused Exam Time of Focused Exam: 20:45 Objective Exam Vital Signs Vital Signs Date Time Temp Pulse Resp B/P (MAP) Pulse Ox O2 Delivery O2 Flow Rate FiO2 03/28/21 15:47 36.5 03/28/21 15:23 95 Vapotherm 40.00 75 03/28/21 15:00 57 11 151/96 Capillary Refill : Less Than 3 Seconds General Appearance: No Apparent Distress, Obese Respiratory: Lungs Clear, Normal Breath Sounds, No Respiratory Distress Cardiovascular: Regular Rate, Rhythm, No Edema, No Murmur Gastrointestinal: Normal Bowel Sounds, Non Tender, Soft Extremity: Normal Inspection, Non Tender, No Pedal Edema Neurologic/Psychiatric: Alert, Oriented x3, No Motor/Sensory Deficits, Normal Mood/Affect Skin: Normal Color, Warm/Dry Results/Procedures Lab Laboratory Tests 03/28/21 04:25 Patient resulted labs reviewed. Imaging: Reviewed Imaging Report Assessment/Plan Assessment and Plan Assess & Plan/Chief Complaint Acute respiratory failure due to COVID-19 Secondary bacterial pneumonia Elevated d-dimer Decadron s/p Actemra Rocephin and Azithromycin Therapeutic Lovenox TeleICU following Oxygen requirement improving this morning T2DM Steroid induced hyperglycemia Add on A1C Levemir Add Novolog with meals Sliding scale insulin Morbid obesity Clinically significant, no acute management needs Critical Care Critically Ill Patient Diagnosis/Problems Diagnosis/Problems (1) Acute respiratory failure due to severe acute respiratory syndrome coronavirus 2 (SARS-CoV-2) infection Status: Acute (2) Pneumonia due to severe acute respiratory syndrome coronavirus 2 (SARS-CoV-2) Status: Acute (3) Secondary bacterial pneumonia Status: Acute (4) Elevated d-dimer Status: Acute (5) Morbid obesity Status: Chronic (6) Non-insulin dependent diabetes mellitus Status: Chronic (7) Steroid-induced hyperglycemia Status: Acute QASIM BABCOCK MD Mar 28, 2021 16:55
[2021-03-28] MEDS: AZITHROMYCIN INJECTION 500 MG in NS (IVPB) 250 ML IV SCH (21:11)
[2021-03-28] MEDS: cefTRIAXone 1,000 MG in WATER (STERILE) FOR INJECTION 10 ML IV SCH (21:11)
[2021-03-28 21:54] VITALS: BP 157/92
[2021-03-29 01:57] VITALS: BP 133/77
[2021-03-29] MEDS: RT-ALBUTEROL HFA 8.5 GM INHALER IH SCH ×6 (01:57→22:15)
[2021-03-29] MEDS: inSUlin ASPART (NovoLOG) 1 UNIT/0.01 ML (CHARGE PER UNIT) SC SCH ×7 (05:35→20:47)
[2021-03-29 05:54] LABS: BASOPHILS % (AUTO) 0 % (0-10); EOSINOPHILS % (AUTO) 1 % (0-10); HEMATOCRIT 45 % (40-54); HEMOGLOBIN 14.9 g/dL (13.3-17.7); LYMPHOCYTES # (AUTO) 1.4 10^3/uL (1.0-4.0); LYMPHOCYTES % (AUTO) 19 % (12-44); MEAN CORPUSCULAR HEMOGLOBIN 29 pg (25-34); MEAN CORPUSCULAR HGB CONC 33 g/dL (32-36); MEAN CORPUSCULAR VOLUME 89 fL (80-99); MONOCYTES # (AUTO) 0.5 10^3/uL (0.0-1.0); MONOCYTES % (AUTO) 6 % (0-12); NEUTROPHILS # (AUTO) 5.1 10^3/uL (1.8-7.8); NEUTROPHILS % (AUTO) 69 % (42-75); PLATELET COUNT 223 10^3/uL (130-400); WHITE BLOOD COUNT 7.3 10^3/uL (4.3-11.0)
[2021-03-29 06:10] LABS: ALBUMIN 3.3 GM/DL (3.2-4.5); POTASSIUM 3.8 MMOL/L (3.6-5.0)
[2021-03-29 06:11] LABS: CALCIUM 8.9 MG/DL (8.5-10.1)
[2021-03-29 06:12] LABS: TOTAL PROTEIN 6.1 GM/DL (6.4-8.2)
[2021-03-29 06:14] LABS: BILIRUBIN,TOTAL 0.6 MG/DL (0.1-1.0)
[2021-03-29 06:15] LABS: PHOSPHORUS 4.4 MG/DL (2.3-4.7)
[2021-03-29 06:16] LABS: CREATININE SERUM 0.67 MG/DL (0.60-1.30)
[2021-03-29 07:23] VITALS: BP 132/83
[2021-03-29] MEDS: RT--FLUTICASONE/SALMETEROL 232-14 (AIRDUO RespiCLICK) IH SCH ×2 (07:23→18:50)
[2021-03-29] MEDS: ENOXAPARIN 60 MG/0.6 ML (LOVENOX) SYR SC SCH ×2 (08:52→21:15)
--- NOTE | 2021-03-29 10:26 | Tele-ICU Progress Note ---
Subjective Date Seen by a Provider: Mar 29, 2021 Time Seen by a Provider: 10:25 Sepsis Event Evaluation Height, Weight, BMI Height: '" Weight: lbs. oz. kg; 52.51 BMI Method: Focused Exam Time of Focused Exam: 20:45 Exam Exam Patient acknowledged, consented, and participated in this virtual visit which was conducted using real time audio/video Vital Signs Date Time Temp Pulse Resp B/P (MAP) Pulse Ox O2 Delivery O2 Flow Rate FiO2 03/29/21 10:00 53 21 147/80 92 Vapotherm 30.00 50.00 03/29/21 09:50 Vapotherm 30.00 50.00 03/29/21 09:00 66 16 140/90 92 Vapotherm 20.00 30.00 03/29/21 08:57 94 Vapotherm 20.00 30.00 03/29/21 08:45 NIV Bilevel 30 03/29/21 08:00 51 27 117/67 100 NIV Bilevel 30.00 03/29/21 07:53 36.8 03/29/21 07:23 59 25 93 30.00 03/29/21 07:00 54 03/29/21 07:00 56 29 132/83 92 NIV Bilevel 30.00 03/29/21 06:00 54 30 125/69 97 NIV Bilevel 30.00 03/29/21 05:00 50 32 121/72 98 NIV Bilevel 30.00 03/29/21 04:00 53 15 127/72 97 NIV Bilevel 30.00 03/29/21 03:50 36.4 55 25 96 NIV Bilevel 30.00 03/29/21 03:50 96 NIV Bilevel 30 03/29/21 03:00 52 16 123/72 92 NIV Bilevel 30.00 03/29/21 02:00 51 34 132/75 96 NIV Bilevel 30.00 03/29/21 01:57 49 32 97 30.00 03/29/21 01:00 50 31 133/77 97 NIV Bilevel 30.00 03/29/21 01:00 50 03/29/21 00:00 60 31 130/82 94 NIV Bilevel 30.00 03/28/21 23:50 36.7 55 35 99 NIV Bilevel 30.00 03/28/21 23:50 97 NIV Bilevel 30 03/28/21 23:00 52 29 125/78 98 NIV Bilevel 50.00 03/28/21 22:00 53 28 135/80 97 NIV Bilevel 50.00 03/28/21 21:54 52 32 98 50.00 03/28/21 21:33 NIV Bilevel 50.00 03/28/21 21:31 NIV Bilevel 60.00 03/28/21 21:28 NIV Bilevel 80.00 03/28/21 21:26 NIV Bilevel 100.00 03/28/21 21:00 63 27 157/92 97 Vapotherm 30.00 50.00 03/28/21 20:00 61 28 163/86 95 Vapotherm 30.00 50.00 03/28/21 20:00 95 Vapotherm 30.00 50 03/28/21 19:55 36.7 Vapotherm 30.00 50.00 03/28/21 19:16 35.9 03/28/21 19:00 65 17 168/116 94 Vapotherm 30.00 50.00 03/28/21 19:00 60 03/28/21 18:44 92 Vapotherm 30.00 50 03/28/21 18:00 66 30 176/104 95 Vapotherm 30.00 50.00 03/28/21 17:00 55 8 166/104 96 Vapotherm 30.00 50.00 03/28/21 16:00 63 155/96 94 Vapotherm 30.00 50.00 03/28/21 15:47 36.5 03/28/21 15:23 95 Vapotherm 40.00 75 03/28/21 15:04 92 Vapotherm 30.00 50 03/28/21 15:00 57 11 151/96 98 Vapotherm 30.00 50.00 03/28/21 14:00 65 11 160/96 94 Vapotherm 40.00 75.00 03/28/21 13:00 57 24 164/109 94 Vapotherm 40.00 75.00 03/28/21 12:57 58 03/28/21 12:02 94 Vapotherm 40.00 75 03/28/21 12:00 56 25 143/99 96 Vapotherm 40.00 75.00 03/28/21 11:40 36.2 03/28/21 11:24 Vapotherm 40.00 75.00 03/28/21 11:05 95 Vapotherm 40.00 75 03/28/21 11:00 56 27 155/99 100 Vapotherm 40.00 100.00 I & O 03/29/21 07:00 Intake Total 2730 ml Output Total 3225 ml Balance -495 ml Height & Weight Height: '" Weight: lbs. oz. kg; 52.51 BMI Method: General Appearance: No Apparent Distress, Obese HEENT: PERRL/EOMI, Normal ENT Inspection, Pharynx Normal, Moist Mucous Membrane s Neck: Full Range of Motion, Normal Inspection, Non Tender Respiratory: Lungs Clear, Normal Breath Sounds, No Respiratory Distress Cardiovascular: Regular Rate, Rhythm, No Edema, No Murmur Capillary Refill: Less Than 3 Seconds Gastrointestinal: normal bowel sounds, non tender Extremity: Normal Inspection, Non Tender, No Pedal Edema Neurologic/Psychiatric: Alert, Oriented x3, No Motor/Sensory Deficits, Normal Mood/Affect Skin: Normal Color, Warm/Dry Lymphatic: No Adenopathy Results Lab Laboratory Tests 03/28/21 04:25 03/29/21 05:34 Assessment/Plan Assessment/Plan Tele-ICU Physician , Progress Note ) Available chart/ vitals / labs / Images reviewed Video assessment done using teleICU camera, rest of exam as per RN Discussed with RN , EXAM PER RN Events overnight : BIPAP FEBRILE I/O = pos drips: Pressors: , hemodynamically stable Consultants: Hospital course: 03/24 ER to ICU COVID PNA , Vapotherm 100% 35 L 03/27 - vapotherm 40 100% - bipap PRN 03/29 - BIPAP 01/02 30% rr30 TV 550 MV 16 A/P AHRF / ARDS due to severe COVID19 ( no PE on CT 03/24 -Vapotherm 75 % 40 L - prn - BIPAP 8 30% rr30 TV 550 MV 16 - SOME IMPROVEMENT IN FIO2- WILL ENCOURAGE TO USE BIPAP AT NIGHT AND FOR NAPS -prone position if able - conservative fluid strategy ( negative fluid balance with lasix x1 - still on VT 40/100% SERX-Iasdswbkycc-7/COVID-19 PNA ( 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 , 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 ) -Steroids IV - started 03/24 -Hypercoagulable state , DDIMER on 03/24 0.7 -> lovenox 60 q12h ( no evidence of large PE on CT ) - DDIMER 03/28 - neg - Actemra 03/25 Suspected superimposed bact PNA -empiric abx started on ceftriax on 03/24 ( PCT 0.2 Cx sputum Diabetes Mellitus - ISS , close f/up on steroids transaminitis -likely due to COVID-19 - improved - now riding up again - follow Lines : periph - candidate for PICC - if worsening (Central Line Necessity Reviewed) Eaton: void OG: Nutrition: PO Analgesia: Anxiety/ delirium VTE Prophylaxis: remedios 60 q12 Stress Ulcer Prophylaxis: po Plans in collaboration with bedside consultants and IM MDs. Discussed with RN to reach out if any questions or concerns A total of 33 minutes of critical care time was devoted to this patient today, required to treat and/or prevent further deterioration of critical care condition ( as above) . AMANDA SALMON MD Mar 29, 2021 10:26
--- NOTE | 2021-03-29 14:13 | Progress Note - Hospitalist ---
Subjective HPI/CC On Admission Date Seen by Provider: Mar 29, 2021 Time Seen by Provider: 11:00 CC: Covid-19 pneumonia with acute hypoxic respiratory failure HPI: This is a 30yoWM who presented seven days after positive Covid swab, who had worsening hypoxia requiring oxygen supplementation, he is now on Vapotherm and meets criteria for Actemera. 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 Pt was counseled on the need for laying on his side or prone. Subjective/Events-last exam He is feeling better. He is not short of breath. He wants to take a shower. Focused Exam Time of Focused Exam: 20:45 Objective Exam Vital Signs Vital Signs Date Time Temp Pulse Resp B/P (MAP) Pulse Ox O2 Delivery O2 Flow Rate FiO2 03/29/21 13:39 71 20 140/74 88 High Flow N/C 10.00 03/29/21 11:54 36.9 03/29/21 08:45 30 Capillary Refill : Less Than 3 Seconds General Appearance: No Apparent Distress, Obese Respiratory: Lungs Clear, Normal Breath Sounds, No Respiratory Distress Cardiovascular: Regular Rate, Rhythm, No Edema, No Murmur Gastrointestinal: Normal Bowel Sounds, Non Tender, Soft Extremity: Normal Inspection, Non Tender, No Pedal Edema Neurologic/Psychiatric: Alert, Oriented x3, No Motor/Sensory Deficits, Normal Mood/Affect Skin: Normal Color, Warm/Dry Results/Procedures Lab Laboratory Tests 03/29/21 05:34 Patient resulted labs reviewed. Imaging: Reviewed Imaging Report Assessment/Plan Assessment and Plan Assess & Plan/Chief Complaint Acute respiratory failure due to COVID-19 Elevated d-dimer Decadron s/p Actemra s/p Rocephin and Azithromycin Therapeutic Lovenox TeleICU following Oxygen requirement improving T2DM Steroid induced hyperglycemia A1C pending Levemir Novolog with meals Sliding scale insulin Morbid obesity Clinically significant, no acute management needs Secondary bacterial pneumonia, resolved Diagnosis/Problems Diagnosis/Problems (1) Acute respiratory failure due to severe acute respiratory syndrome coronavirus 2 (SARS-CoV-2) infection Status: Acute (2) Pneumonia due to severe acute respiratory syndrome coronavirus 2 (SARS-CoV-2) Status: Acute (3) Secondary bacterial pneumonia Status: Acute (4) Elevated d-dimer Status: Acute (5) Morbid obesity Status: Chronic (6) Non-insulin dependent diabetes mellitus Status: Chronic (7) Steroid-induced hyperglycemia Status: Acute QASIM BABCOCK MD Mar 29, 2021 14:13
[2021-03-30] MEDS: RT-ALBUTEROL HFA 8.5 GM INHALER IH SCH ×6 (01:52→22:05)
[2021-03-30 05:58] LABS: BASOPHILS % (AUTO) 0 % (0-10); EOSINOPHILS # (AUTO) 0.1 10^3/uL (0.0-0.3); EOSINOPHILS % (AUTO) 1 % (0-10); HEMATOCRIT 47 % (40-54); HEMOGLOBIN 15.7 g/dL (13.3-17.7); LYMPHOCYTES # (AUTO) 1.7 10^3/uL (1.0-4.0); LYMPHOCYTES % (AUTO) 18 % (12-44); MEAN CORPUSCULAR HEMOGLOBIN 30 pg (25-34); MEAN CORPUSCULAR HGB CONC 34 g/dL (32-36); MEAN CORPUSCULAR VOLUME 88 fL (80-99); MONOCYTES # (AUTO) 0.7 10^3/uL (0.0-1.0); MONOCYTES % (AUTO) 7 % (0-12); NEUTROPHILS # (AUTO) 6.4 10^3/uL (1.8-7.8); NEUTROPHILS % (AUTO) 70 % (42-75); PLATELET COUNT 247 10^3/uL (130-400); WHITE BLOOD COUNT 9.2 10^3/uL (4.3-11.0)
[2021-03-30] MEDS: inSUlin ASPART (NovoLOG) 1 UNIT/0.01 ML (CHARGE PER UNIT) SC SCH ×7 (05:59→22:25)
[2021-03-30 06:14] LABS: ALBUMIN 3.5 GM/DL (3.2-4.5); POTASSIUM 3.9 MMOL/L (3.6-5.0)
[2021-03-30 06:16] LABS: TOTAL PROTEIN 6.3 GM/DL (6.4-8.2)
[2021-03-30 06:18] LABS: BILIRUBIN,TOTAL 0.8 MG/DL (0.1-1.0)
[2021-03-30 06:20] LABS: CREATININE SERUM 0.76 MG/DL (0.60-1.30); PHOSPHORUS 4.2 MG/DL (2.3-4.7)
[2021-03-30 06:23] LABS: MAGNESIUM 2.3 MG/DL (1.6-2.4)
[2021-03-30] MEDS: RT--FLUTICASONE/SALMETEROL 232-14 (AIRDUO RespiCLICK) IH SCH ×2 (07:01→18:30)
[2021-03-30] MEDS: ENOXAPARIN 60 MG/0.6 ML (LOVENOX) SYR SC SCH (09:25)
--- NOTE | 2021-03-30 13:24 | Progress Note - Hospitalist ---
Subjective HPI/CC On Admission Date Seen by Provider: Mar 30, 2021 Time Seen by Provider: 11:35 CC: Covid-19 pneumonia with acute hypoxic respiratory failure HPI: This is a 30yoWM who presented seven days after positive Covid swab, who had worsening hypoxia requiring oxygen supplementation, he is now on Vapotherm and meets criteria for Actemera. 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 Pt was counseled on the need for laying on his side or prone. Subjective/Events-last exam He is feeling better. He is not feeling short of breath. He is not having any fevers or chills. He has been eating and drinking without issue. Focused Exam Time of Focused Exam: 20:45 Objective Exam Vital Signs Vital Signs Date Time Temp Pulse Resp B/P (MAP) Pulse Ox O2 Delivery O2 Flow Rate FiO2 03/30/21 11:25 35.8 60 26 152/77 94 High Flow N/C 7.00 03/29/21 08:45 30 Capillary Refill : Less Than 3 Seconds General Appearance: No Apparent Distress, Obese Respiratory: Lungs Clear, Normal Breath Sounds, No Respiratory Distress Cardiovascular: Regular Rate, Rhythm, No Edema, No Murmur Gastrointestinal: Normal Bowel Sounds, Non Tender, Soft Extremity: Normal Inspection, Non Tender, No Pedal Edema Neurologic/Psychiatric: Alert, Oriented x3, No Motor/Sensory Deficits, Normal Mood/Affect Skin: Normal Color, Warm/Dry Results/Procedures Lab Laboratory Tests 03/30/21 05:46 Patient resulted labs reviewed. Imaging: Reviewed Imaging Report Assessment/Plan Assessment and Plan Assess & Plan/Chief Complaint Acute respiratory failure due to COVID-19 Decadron s/p Actemra s/p Rocephin and Azithromycin Transition to prophylactic Lovenox TeleICU following Oxygen requirement improving, weaning as able Home oxygen evaluation tomorrow morning T2DM Steroid induced hyperglycemia A1C pending Levemir Novolog with meals Sliding scale insulin Morbid obesity Clinically significant, no acute management needs DVT prophylaxis: Lovenox Secondary bacterial pneumonia, resolved Elevated d-dimer, resolved Diagnosis/Problems Diagnosis/Problems (1) Acute respiratory failure due to severe acute respiratory syndrome coronavirus 2 (SARS-CoV-2) infection Status: Acute (2) Pneumonia due to severe acute respiratory syndrome coronavirus 2 (SARS-CoV-2) Status: Acute (3) Secondary bacterial pneumonia Status: Resolved Resolution Date/Time: 03/30/21 @ 13:24 (4) Elevated d-dimer Status: Resolved Resolution Date/Time: 03/30/21 @ 13:24 (5) Morbid obesity Status: Chronic (6) Non-insulin dependent diabetes mellitus Status: Chronic (7) Steroid-induced hyperglycemia Status: Acute QASIM BABCOCK MD Mar 30, 2021 13:24
[2021-03-30] MEDS: ENOXAPARIN 40 MG/0.4 ML (LOVENOX) SYR SC SCH (22:24)
[2021-03-30] MEDS: CALCIUM CARBONATE 500 MG (TUMS) TAB.CHEW PO PRN (22:25)
[2021-03-31] MEDS: RT-ALBUTEROL HFA 8.5 GM INHALER IH SCH ×3 (02:28→11:28)
[2021-03-31] MEDS: inSUlin ASPART (NovoLOG) 1 UNIT/0.01 ML (CHARGE PER UNIT) SC SCH ×4 (05:52→13:45)
[2021-03-31 06:12] LABS: BASOPHILS % (AUTO) 0 % (0-10); EOSINOPHILS # (AUTO) 0.1 10^3/uL (0.0-0.3); EOSINOPHILS % (AUTO) 1 % (0-10); HEMATOCRIT 49 % (40-54); HEMOGLOBIN 16.5 g/dL (13.3-17.7); LYMPHOCYTES # (AUTO) 1.9 10^3/uL (1.0-4.0); LYMPHOCYTES % (AUTO) 18 % (12-44); MEAN CORPUSCULAR HEMOGLOBIN 30 pg (25-34); MEAN CORPUSCULAR HGB CONC 34 g/dL (32-36); MEAN CORPUSCULAR VOLUME 88 fL (80-99); MEAN PLATELET VOLUME 11.3 fL (9.0-12.2); MONOCYTES # (AUTO) 0.7 10^3/uL (0.0-1.0); MONOCYTES % (AUTO) 7 % (0-12); NEUTROPHILS # (AUTO) 7.1 10^3/uL (1.8-7.8); NEUTROPHILS % (AUTO) 68 % (42-75); PLATELET COUNT 261 10^3/uL (130-400); WHITE BLOOD COUNT 10.4 10^3/uL (4.3-11.0)
[2021-03-31 06:39] LABS: ALBUMIN 3.5 GM/DL (3.2-4.5); POTASSIUM 4.3 MMOL/L (3.6-5.0)
[2021-03-31 06:40] LABS: CALCIUM 9.6 MG/DL (8.5-10.1)
[2021-03-31 06:43] LABS: BILIRUBIN,TOTAL 0.6 MG/DL (0.1-1.0)
[2021-03-31 06:44] LABS: PHOSPHORUS 4.4 MG/DL (2.3-4.7)
[2021-03-31 06:45] LABS: CREATININE SERUM 0.71 MG/DL (0.60-1.30)
[2021-03-31 06:48] LABS: MAGNESIUM 2.2 MG/DL (1.6-2.4)
[2021-03-31] MEDS: RT--FLUTICASONE/SALMETEROL 232-14 (AIRDUO RespiCLICK) IH SCH (07:05)
[2021-03-31] MEDS: ENOXAPARIN 40 MG/0.4 ML (LOVENOX) SYR SC SCH (09:17)
[2021-03-31] MEDS: CALCIUM CARBONATE 500 MG (TUMS) TAB.CHEW PO PRN (09:23)
[2021-03-31] MEDS ORDERED: ALBU90AE IH (12:17)
[2021-03-31] MEDS ORDERED: FLUT1AER5 IH (12:17)
[2021-03-31] MEDS ORDERED: METF-399 PO (12:23)
[2021-03-31 13:58] VITALS: BP 181/92
--- NOTE | 2021-03-31 14:24 | Discharge Summary ---
Discharge Summary Hospital Course Hospital Course Date of Admission: Mar 24, 2021 at 20:40 Admission Diagnosis : Acute hypoxic respiratory failure COVID-19 pneumonia Diabetes with elevated sugar due to steroids Obesity BMI 52 Elevated liver enzymes Family Physician/Provider: ElyssaLocal Physician Date of Discharge: 03/31/21 Discharge Diagnosis: Acute respiratory failure due to COVID-19 T2DM Steroid induced hyperglycemia Morbid obesity Secondary bacterial pneumonia, resolved Elevated d-dimer, resolved Elevated liver enzymes Hospital Course: Acute respiratory failure due to COVID-19, received Actemra and required vapotherm, ultimately able to wean to room air, required 2 lpm supplemental oxygen with exertion on d/c which was ordered. Received Decadron x 7 days. Treated with course of azithromycin and ceftriaxone for secondary pneumonia. Initially on therapeutic enoxaparin with elevated D dimer, which resolved on repeat. CTA chest negative for PE, but distal and subsegmental branches not well seen. Elevated LFTs possibly related to COVID versus fatty infiltration of liver, need repeat and further work-up outpatient if persistent. Type 2 DM, A1c in October outpatient was 5.7, not on medication outpatient. Received insulin while hospitalized due to hyperglycemia with steroids, restarted metformin on d/c. Labs and Pending Lab Test: Laboratory Tests 03/30/21 16:56: Glucometer 274H 03/30/21 20:33: Glucometer 214H 03/31/21 05:38: Glucometer 158H 03/31/21 05:57: White Blood Count 10.4, Red Blood Count 5.53H, Hemoglobin 16.5, Hematocrit 49, Mean Corpuscular Volume 88, Mean Corpuscular Hemoglobin 30, Mean Corpuscular Hemoglobin Concent 34, Red Cell Distribution Width 13.0, Platelet Count 261, Mean Platelet Volume 11.3, Immature Granulocyte % (Auto) 6, Neutrophils (%) (Auto) 68, Lymphocytes (%) (Auto) 18, Monocytes (%) (Auto) 7, Eosinophils (%) (Auto) 1, Basophils (%) (Auto) 0, Neutrophils # (Auto) 7.1, Lymphocytes # (Auto) 1.9, Monocytes # (Auto) 0.7, Eosinophils # (Auto) 0.1, Basophils # (Auto) 0.0, Immature Granulocyte # (Auto) 0.7H, Sodium Level 138, Potassium Level 4.3, Chloride Level 103, Carbon Dioxide Level 21, Anion Gap 14, Blood Urea Nitrogen 15, Creatinine 0.71, Estimat Glomerular Filtration Rate 129, BUN/Creatinine Ratio 21, Glucose Level 159H, Calcium Level 9.6, Corrected Calcium 10.0, Phosphorus Level 4.4, Magnesium Level 2.2, Total Bilirubin 0.6, Aspartate Amino Transf (AST/SGOT) 70H, Alanine Aminotransferase (ALT/SGPT) 182H, Alkaline Phosphatase 39L, Total Protein 7.0, Albumin 3.5 Microbiology 03/24/21 MRSA Screen - Final, Complete MRSA not isolated 03/24/21 Blood Culture - Final, Complete Staph, Coag Neg (COMMERCIAL 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 Need to follow up on elevated liver enzymes and diabetes medications. Discharge Diet: ADA Diet Activity as Tolerated: Yes Discharge Physical Examination Allergies: Coded Allergies: No Allergy Information Available (Unverified , 03/24/21) General Appearance: No Apparent Distress, WD/WN Respiratory: Lungs Clear, Normal Breath Sounds Cardiovascular: Regular Rate, Rhythm, No Murmur Skin: Warm/Dry Neurologic/Psychiatric: Alert, Normal Mood/Affect JULIENNE LEWIS MD Mar 31, 2021 14:24
== END 2021-03-31 13:58 | disposition home or self-care (01) | DRG 177 ==
LOC: ER 18:54 → ICU 20:40 → 4TH 03-29 13:41
PROVIDERS: ADMIT Internal Medicine; ATTEND Family Medicine
PROC: 5A09457 Assistance with Respiratory Ventilation, 24-96 Consecutive Hours, Continuous Positive Airway Pressure (ICD-10-PCS; principal; 2021-03-28)
DX: U07.1 COVID-19 (principal); J12.82 Pneumonia due to coronavirus disease 2019; J15.9 Unspecified bacterial pneumonia; J80 Acute respiratory distress syndrome; Z68.43 Body mass index [BMI] 50.0-59.9, adult; T38.0X5A Adverse effect of glucocorticoids and synthetic analogues, initial encounter; E11.65 Type 2 diabetes mellitus with hyperglycemia; E66.01 Morbid (severe) obesity due to excess calories; Z87.891 Personal history of nicotine dependence
CPT/HCPCS: 36415; 36600; 71045; 71275; 80053; 81000; 82550; 82553; 82805; 82947; 83036; 83605; 83615; 83735; 83874; 83880; 84100; 84145; 84484; 85025; 85379; 85610; 85652; 85730; 86141; 87040; 87081; 87088; 87636; 93005; 93041; 94640; 94660; 94760; 94761; 96361; 96374; 99291